=== PATIENT | male | born 1955 | race Hispanic/Latino ===

== ENCOUNTER 2019-06-13 19:38 | Emergency (ER) | payer MEDICARE ==
--- NOTE | 2019-06-13 22:08 | ER ---
Nurse's Notes [facility] Name: Jeremy Conklin Age: 64 yrs Sex: Male : 1955 Arrival Date: 06/13/2019 Time: 19:41 Bed 12 Private MD: Diagnosis: Bronchitis, not specified as acute or chronic;Asthma Presentation: 06/13 20:02 Presenting complaint: Patient states: cough congestion sore throat for 2-3 days. Pain dm5 when swallowing. Ibuprofen taken at 1630. Transition of care: patient was not received from another setting of care. Onset of symptoms was June 11, 2019. Risk Assessment: Do you want to hurt yourself or someone else? Patient reports no desire to harm self or others. Initial Sepsis Screen: Does the patient meet any 2 criteria? No. Patient's initial sepsis screen is negative. Does the patient have a suspected source of infection? No. Patient's initial sepsis screen is negative. Care prior to arrival: None. 20:02 Method Of Arrival: Ambulatory dm5 20:02 Acuity: DARLENE 4 dm5 Historical: - Allergies: 20:08 No Known Allergies; dm5 - Home Meds: 20:08 "toujeo" [Active]; Invokamet oral oral [Active]; Lisinopril Oral [Active]; dm5 levothyroxine oral [Active]; - PMHx: 20:08 Diabetes - NIDDM; Hypothyroidism; Hypertension; dm5 Screenin:33 Abuse screen: Denies threats or abuse. Denies injuries from another. Nutritional aa1 screening: No deficits noted. Tuberculosis screening: No symptoms or risk factors identified. Fall Risk None identified. Assessment: 21:10 Reassessment: Hand-off received from Georgia Sandoval RN. aa1 21:33 General: Appears in no apparent distress. comfortable, Behavior is calm, cooperative, aa1 appropriate for age. Pain: Denies pain. Neuro: Level of Consciousness is awake, alert, obeys commands, Oriented to person, place, time, situation. Respiratory: Reports cough that is Airway is patent Respiratory effort is even, unlabored, Respiratory pattern is regular, symmetrical, Breath sounds are clear bilaterally. GI: No signs and/or symptoms were reported involving the gastrointestinal system. : No signs and/or symptoms were reported regarding the genitourinary system. EENT: Throat is clear Reports pain when swallowing. Derm: Skin is intact, is healthy with good turgor, Skin is pink, warm \\T\\ dry. Musculoskeletal: Capillary refill < 3 seconds. 22:03 Reassessment: Patient appears in no apparent distress at this time. Patient and/or aa1 family updated on plan of care and expected duration. Pain level reassessed. Patient is alert, oriented x 3, equal unlabored respirations, skin warm/dry/pink. Awaiting provider reassessment. Vital Signs: 20:08 BP 109 / 58; Pulse 87; Resp 18; Temp 99(O); Pulse Ox 96% on R/A; Weight 80.74 kg; dm5 Height 5 ft. 6 in. (167.64 cm); 22:05 BP 113 / 61; Pulse 84; Resp 18; Temp 98.7; Pulse Ox 95% on R/A; Pain 0/10; aa1 20:08 Body Mass Index 28.73 (80.74 kg, 167.64 cm) dm5 ED Course: 19:41 Patient arrived in ED. cf2 19:45 Triage completed. mg2 19:47 Mariela Garrido FNP-C [facility]. snw 19:47 Colleen Blunt MD is Attending Physician. snw 20:08 Arm band placed on right wrist. Patient placed in an exam room. dm5 20:40 Flu and/or RSV swab sent to lab. Strep swab sent to lab. jp3 20:41 Strep Sent. jp3 20:41 Flu Sent. jp3 21:33 Patient has correct armband on for positive identification. Call light in reach. Pulse aa1 ox on. NIBP on. 21:33 No provider procedures requiring assistance completed. Patient did not have IV access aa1 during this emergency room visit. 21:59 Yady Barajas, ROLAND is Primary Nurse. aa1 Administered Medications: 22:03 Drug: Zithromax 500 mg Route: PO; aa1 22:22 Follow up: Response: No adverse reaction; Medication administered at discharge. aa1 22:03 Drug: Tussionex Pennkinetic ER 5 ml Route: PO; aa1 22:22 Follow up: Response: No adverse reaction; Medication administered at discharge. aa1 Outcome: 22:08 Discharge ordered by . snw 22:24 Discharged to home ambulatory, with significant other. aa1 22:24 Condition: good 22:24 Discharge instructions given to patient, significant other, Instructed on discharge instructions, follow up and referral plans. medication usage, Demonstrated understanding of instructions, follow-up care, medications, Prescriptions given X 2. 22:24 Patient left the ED. aa1 Signatures: Georgia Sandoval RN RN dm5 Yady Barajas RN RN aa1 Mariela Garrido, CARPENTER HELPER-C CARPENTER HELPER-Csnw Dalton Benton RN RN mg2 Luis Venegas jp3 Polly Melchor cf2 Corrections: (The following items were deleted from the chart) 19:44 Presenting complaint: Mother states: sore throat and congestion started Wednesday. mg2 Today she was in bed all day and complained that she was achy and that her legs hurt. mg2 :47 19:44 Transition of care: patient was not received from another setting of care. [place] [id number] 47 19:44 Onset of symptoms was June 12, 2019 [place] [id number] 47 19:44 Risk Assessment: Do you want to hurt yourself or someone else? Patient reports no mg2 desire to harm self or others. mg2 47 19:44 Initial Sepsis Screen: Does the patient meet any 2 criteria? HR > 90 bpm. Does mg2 the patient have a suspected source of infection? Yes: Other: possibly influenza mg2 19:44 Care prior to arrival: None. mg2 mg2 47 19:44 Method [facility] Arrival: [facility] [place] [place] mg2 47 19:44 Acuity: DARLENE 4 mg2 mg2 47 19:45 Allergies: No Known Allergies; mg2 mg2 47 19:45 Home Meds: None; mg2 mg2 19:45 PMHx: None; mg2 mg2 47 19:45 PSHx: Tonsillectomy; mg2 mg2 :47 19:45 BP 134 / 82; Pulse 105bpm; Resp 20bpm; Pulse Ox 99% RA; Temp 98.6F Oral; 95.25 mg2 kg; Height 5 ft. 3 in.; BMI: 37.2; Pain 7/10; mg2 19:47 19:45 Arm band placed on right wrist. Patient placed in an exam room, [place] [id number]
--- NOTE | 2019-06-13 22:08 | EDPHYS ---
Physician Documentation [facility] Name: Jeremy Conklin Age: 64 yrs Sex: Male : 1955 Arrival Date: 06/13/2019 Time: 19:41 Bed 12 Private MD: ED Physician Colleen Blunt HPI: 06/13 20:57 This 64 yrs old Male presents to ER via Ambulatory with complaints of Flu snw Symptoms, Sore Throat. 20:57 The patient or guardian reports cough, flu symptoms, arthralgias, low-grade fever, snw myalgias, no appetite. Onset: The symptoms/episode began/occurred suddenly, and became persistent. Associated signs and symptoms: Pertinent positives: fever, sore throat. Severity of symptoms: At their worst the symptoms were moderate in the emergency department the symptoms are unchanged. The patient has not experienced similar symptoms in the past. It is unknown whether or not the patient has recently seen a physician. Historical: - Allergies: 20:08 No Known Allergies; dm5 - Home Meds: 20:08 "toujeo" [Active]; Invokamet oral oral [Active]; Lisinopril Oral [Active]; dm5 levothyroxine oral [Active]; - PMHx: 20:08 Diabetes - NIDDM; Hypothyroidism; Hypertension; dm5 ROS: 20:56 Eyes: Negative for injury, pain, redness, and discharge. snw 20:56 Neck: Negative for injury, pain, and swelling, Cardiovascular: Negative for chest pain, palpitations, and edema. 20:56 Abdomen/GI: Negative for abdominal pain, nausea, vomiting, diarrhea, and constipation, Back: Negative for injury and pain, : Negative for injury, bleeding, discharge, and swelling, MS/Extremity: Negative for injury and deformity, Skin: Negative for injury, rash, and discoloration. 20:56 Constitutional: Positive for body aches, fatigue, fever, malaise. 20:56 ENT: Positive for sinus congestion, sore throat. 20:56 Respiratory: Positive for cough, hx of asthma. 20:56 Neuro: Positive for headache. Exam: 20:49 Head/Face: Normocephalic, atraumatic. Eyes: Pupils equal round and reactive to light, snw extra-ocular motions intact. Lids and lashes normal. Conjunctiva and sclera are non-icteric and not injected. Cornea within normal limits. Periorbital areas with no swelling, redness, or edema. 20:49 Constitutional: The patient appears alert, awake, febrile, congested 20:49 ENT: Ear canal(s): are normal, TM's: are normal, Nose: Nasal mucosa: edematous, erythematous, Mouth: is normal, Posterior pharynx: erythema, that is moderate, Voice: is normal. 20:55 Chest/axilla: Normal chest wall appearance and motion. Nontender with no deformity. snw No lesions are appreciated. Cardiovascular: Regular rate and rhythm with a normal S1 and S2. No gallops, murmurs, or rubs. Normal PMI, no JVD. No pulse deficits. Respiratory: Lungs have equal breath sounds bilaterally, clear to auscultation and percussion. No rales, rhonchi or wheezes noted. No increased work of breathing, no retractions or nasal flaring. Abdomen/GI: Soft, non-tender, with normal bowel sounds. No distension or tympany. No guarding or rebound. No evidence of tenderness throughout. Back: No spinal tenderness. No costovertebral tenderness. Full range of motion. Skin: Warm, dry with normal turgor. Normal color with no rashes, no lesions, and no evidence of cellulitis. MS/ Extremity: Pulses equal, no cyanosis. Neurovascular intact. Full, normal range of motion. Neuro: Awake and alert, GCS 15, oriented to person, place, time, and situation. Cranial nerves II-XII grossly intact. Motor strength 5/5 in all extremities. Sensory grossly intact. Cerebellar exam normal. Normal gait. Psych: Awake, alert, with orientation to person, place and time. Behavior, mood, and affect are within normal limits. 20:55 Neck: External neck: is normal, Thyroid: appears normal, Lymph nodes: lymphadenopathy is appreciated, anterior cervical nodes. Vital Signs: 20:08 BP 109 / 58; Pulse 87; Resp 18; Temp 99(O); Pulse Ox 96% on R/A; Weight 80.74 kg; dm5 Height 5 ft. 6 in. (167.64 cm); 22:05 BP 113 / 61; Pulse 84; Resp 18; Temp 98.7; Pulse Ox 95% on R/A; Pain 0/10; aa1 20:08 Body Mass Index 28.73 (80.74 kg, 167.64 cm) dm5 MDM: 20:19 Patient medically screened. snw 22:09 Data reviewed: vital signs, nurses notes. Data interpreted: Pulse oximetry: on room air snw is 95 %. Interpretation: acceptable. Counseling: I had a detailed discussion with the patient and/or guardian regarding: the historical points, exam findings, and any diagnostic results supporting the discharge/admit diagnosis, lab results, the need for outpatient follow up, to return to the emergency department if symptoms worsen or persist or if there are any questions or concerns that arise at home. Special discussion: Based on the history and exam findings, there is no indication for further emergent testing or inpatient evaluation. I discussed with the patient/guardian the need to see the primary care provider for further evaluation of the symptoms. 06/13 20:28 Order name: Flu; Complete Time: 21:19 snw 06/13 20:28 Order name: Strep; Complete Time: 21: snw 06/13 21:11 Order name: Throat Culture EDMS Administered Medications: 22:03 Drug: Zithromax 500 mg Route: PO; aa1 22:22 Follow up: Response: No adverse reaction; Medication administered at discharge. aa1 22:03 Drug: Tussionex Pennkinetic ER 5 ml Route: PO; aa1 22:22 Follow up: Response: No adverse reaction; Medication administered at discharge. aa1 Disposition: 06/13/19 22:08 Discharged to Home. Impression: Bronchitis, not specified as acute or chronic, Asthma. - Condition is Stable. - Discharge Instructions: Acute Bronchitis, Adult, Asthma, Adult, Fever, Adult, How to Use an Inhaler, Cool Mist Vaporizer, Cough, Adult, Rehydration, Elderly. - Prescriptions for Albuterol Sulfate 90 mcg/actuation - inhale 1-2 puff by INHALATION route every 4-6 hours; 1 Inhaler. Zithromax 500 mg Oral Tablet - take 1 tablet by ORAL route once daily for 5 days; 5 tablet. - Work release form, Medication Reconciliation Form, Thank You Letter, Antibiotic Education, Prescription Opioid Use form. - Follow up: Emergency Department; When: As needed; Reason: Worsening of condition. Follow up: Private Physician; When: 2 - 3 days; Reason: Recheck today's complaints, Continuance of care, Re-evaluation by your physician. Addendum: 07/03/2019 18:54 Co-signature as Attending Physician, Colleen Blunt MD. m a2 Signatures: Dispatcher [employer] EDMS Georgia Sandoval RN RN dm5 Yady Barajas RN RN aa1 Mariela Garrido, COUPON REDEMPTION CLERK-C COUPON REDEMPTION CLERK-Csnw Colleen Blunt MD MD ma2 Dalton Benton RN RN mg2 Corrections: (The following items were deleted from the chart) 06/13 19:47 19:45 Allergies: No Known Allergies; mg2 mg2 19:47 19:45 Home Meds: None; mg2 mg2 19:47 19:45 PMHx: None; mg2 mg2 19:47 19:45 PSHx: Tonsillectomy; mg2 mg2 20:56 20:49 ENT: External ear(s): snw snw 22:24 22:08 06/13/2019 22:08 Discharged to Home. Impression: Bronchitis, not specified as aa1 acute or chronic; Asthma. Condition is Stable. Forms are Medication Reconciliation Form, Thank You Letter, Antibiotic Education, Prescription Opioid Use. Follow up: Emergency Department; When: As needed; Reason: Worsening of condition. Follow up: Private Physician; When: 2 - 3 days; Reason: Recheck today's complaints, Continuance of care, Re-evaluation by your physician. snw
[2019-06-14 14:44] VITALS: BP 113/61; TEMP 98.7; O2SAT 95
== END 2019-06-13 22:24 | disposition home or self-care (01) ==
LOC: ER 19:38
DX: J40 Bronchitis, not specified as acute or chronic (principal); E03.9 Hypothyroidism, unspecified; I10 Essential (primary) hypertension; E11.9 Type 2 diabetes mellitus without complications
CPT/HCPCS: 87070; 87081; 87804; 99284

== ENCOUNTER 2020-07-30 16:00 | Inpatient (IN) | payer MEDICARE ==
[2020-07-30 16:41] LABS: Absolute Lymphocytes (CBC) 1.8 K/uL (0.7-4.9); Basophils % 0.7 % (0-1.3); Hematocrit 38.2 % (39.6-49.0); Lymphocytes % 27.6 % (15.3-44.8); MPV 8.7 fL (7.6-11.3); RBC Red Blood Cell Count 4.53 M/uL (4.33-5.43)
[2020-07-30] MEDS ORDERED: NA CHLORIDE 0.9% 500 ML ONE (16:45)
[2020-07-30 17:08] LABS: Albumin 3.4 g/dL (3.4-5.0); Bilirubin Total 0.4 mg/dL (0.2-1.0); Potassium 4.5 mmol/L (3.5-5.1); Protein, Total 7.7 g/dL (6.4-8.2)
--- NOTE | 2020-07-30 17:19 | ER ---
Nurse's Notes [facility] Name: Jeremy Conklin Age: 65 yrs Sex: Male : 1955 Arrival Date: 07/30/2020 Time: 16:03 Bed 5 Private MD: Radha Monsalve H Diagnosis: Osteomyelitis of the left 2nd toe Presentation: 07/30 16:09 Chief complaint: Patient states: L foot 1st digit pain, swelling for 10 days. Got MRI ll1 by Dr. Monsalve, was sent for bone infection. Coronavirus screen: Client denies travel out of the [place] in the last 14 days. At this time, the client does not indicate any symptoms associated with coronavirus-19. Ebola Screen: Patient denies travel to an Ebola-affected area in the 21 days before illness onset. Initial Sepsis Screen: Does the patient meet any 2 criteria? No. Patient's initial sepsis screen is negative. Does the patient have a suspected source of infection? Yes: Skin breakdown/wound. Risk Assessment: Do you want to hurt yourself or someone else? Patient reports no desire to harm self or others. Onset of symptoms was July 20, 2020. 16:09 Method Of Arrival: Wheelchair ll1 16:09 Acuity: DARLENE 2 ll1 Historical: - Allergies: 16:11 No Known Allergies; ll1 - Home Meds: 21:48 levothyroxine oral [Active]; rr5 - PMHx: 16:11 Diabetes - NIDDM; Hypertension; Hypothyroidism; ll1 - PSHx: 16:11 wrist sx; ll1 - Immunization history:: Flu vaccine status is unknown. Client reports receiving the 2nd dose of the Covid vaccine. - Social history:: Smoking status: Patient denies any tobacco usage or history of. Screenin:19 Abuse screen: Denies threats or abuse. Denies injuries from another. Nutritional ph screening: No deficits noted. Tuberculosis screening: No symptoms or risk factors identified. 21:48 Fall Risk IV access (20 points). rr5 Assessment: 16:35 General: Appears in no apparent distress. comfortable, well groomed, Behavior is calm, ph cooperative, appropriate for age, Denies fever. Pain: Denies pain. Neuro: Level of Consciousness is awake, alert, obeys commands, Oriented to person, place, time, situation. Cardiovascular: Capillary refill < 3 seconds in bilateral fingers Patient's skin is warm and dry. Respiratory: Airway is patent Respiratory effort is even, unlabored, Respiratory pattern is regular, symmetrical. GI: No signs and/or symptoms were reported involving the gastrointestinal system. Derm: Skin is healthy with good turgor, Skin is pink, warm \T\ dry. Wound noted tip of left great toe Wound is pea-sized, blackened in appearance, no drainage noted, skin to top of foot and second and third toes reddened, no open wounds noted. Musculoskeletal: Circulation, motion, and sensation intact. Range of motion: intact in all extremities. 17:35 Reassessment: Patient appears in no apparent distress at this time. Patient and/or ph family updated on plan of care and expected duration. Pain level reassessed. Patient is alert, oriented x 3, equal unlabored respirations, skin warm/dry/pink. 18:31 Reassessment: Patient appears in no apparent distress at this time. Patient and/or ph family updated on plan of care and expected duration. Pain level reassessed. Patient is alert, oriented x 3, equal unlabored respirations, skin warm/dry/pink. 19:30 Reassessment: Patient appears in no apparent distress at this time. Patient and/or mg2 family updated on plan of care and expected duration. Pain level reassessed. Patient is alert, oriented x 3, equal unlabored respirations, skin warm/dry/pink. Vital Signs: 16:09 BP 91 / 57; Pulse 74; Resp 17; Temp 98.9; Pulse Ox 96% ; Weight 77.11 kg; Height 5 ft. ll1 6 in. (167.64 cm); Pain 0/10; 16:47 BP 105 / 65; Pulse 73; Resp 18; Pulse Ox 95% on R/A; ph 17:45 BP 119 / 61; Pulse 72; Resp 18; Pulse Ox 96% on R/A; ph 18:33 BP 127 / 73; Pulse 72; Resp 18; Pulse Ox 95% on R/A; ph 19:32 BP 134 / 67; Pulse 72; Resp 18; Pulse Ox 97% on R/A; mg2 16:09 Body Mass Index 27.44 (77.11 kg, 167.64 cm) ll1 ED Course: 16:03 Patient arrived in ED. mr 16:03 Radha Monsalve DO is Private Physician. mr 16:05 Armando Johnson PA is PHCP. [facility] 16:05 Cheikh Koo MD is Attending Physician. [facility] 16:10 Triage completed. ll1 16:12 Arm band placed on Patient placed in an exam room, on a stretcher. ll1 16:19 Patient has correct armband on for positive identification. Bed in low position. Call ph light in reach. Side rails up X 1. Pulse ox on. NIBP on. Door closed. Noise minimized. 16:23 Lupe Blackwell, RN is Primary Nurse. ph 16:30 Initial lab(s) drawn, by me, sent to lab. kj1 16:30 Inserted saline lock: in right antecubital area, using aseptic technique. Blood kj1 collected. 17:17 Boaz Hu is Hospitalizing Provider. m 21:48 No provider procedures requiring assistance completed. Patient admitted, IV remains in rr5 place. Administered Medications: 16:34 Drug: NS 0.9% 500 ml Route: IV; Rate: bolus; Site: right antecubital; ph 18:00 Follow up: Response: No adverse reaction; IV Status: Completed infusion; IV Intake: ph 500ml 20:03 Drug: vancoMYCIN 1 grams Route: IVPB; Infused Over: 2 hrs; Site: right antecubital; mg2 03 00:49 Follow up: Response: No adverse reaction; IV Status: Completed infusion; IV Intake: mg2 250ml Intake: 07/30 18:00 IV: 500ml; Total: 500ml. ph 07/31 00:49 IV: 250ml; Total: 750ml. mg2 Outcome: 07/30 17:18 Decision to Hospitalize by Provider. jmm 21:25 Admitted to ER Hold. Please see [facility] for further documentation. rr5 21:25 Condition: stable 21:25 Instructed on the need for admit, Demonstrated understanding of instructions. 03 10:43 Patient left the ED. bp Signatures: Armando Johnson PA PA [facility] Susanne Palma mr Lupe Blackwell, ROLAND RN ph Jean Jeong RN RN bp Dalton Benton RN RN mg2 Blair Singh RN RN rr5 Elisha Frazier kj1 Jin, Lynsay, RN RN ll1 Corrections: (The following items were deleted from the chart) 07/30 16:12 16:09 Acuity: DARLENE 3 ll1 ll1
--- NOTE | 2020-07-30 17:19 | EDPHYS ---
Physician Documentation [facility] Name: Jeremy Conklin Age: 65 yrs Sex: Male : 1955 Arrival Date: 07/30/2020 Time: 16:03 Bed 5 Private MD: Radha Monsalve H ED Physician Cheikh Koo HPI: 07/30 16:23 This 65 yrs old Male presents to ER via Wheelchair with complaints of Infected jmm Toe. 16:23 Onset: The symptoms/episode began/occurred gradually, 10 day(s) ago. Modifying factors: jmm The symptoms are alleviated by nothing, the symptoms are aggravated by nothing. Associated signs and symptoms: Pertinent negatives: fever. This is a 65 year old male with a history of DM,. HTN, hypothyroidism that presents to the ED with complaints of bone infection in the left foot. Seen at [facility] for cellulitis of the left for 10 days ago. Prescribed clindamycin which has helped with redness and swelling. MRI today revealed osteomyelitis. Advised by Dr. Monsalve to go to ED for admission. . Historical: - Allergies: 16:11 No Known Allergies; ll1 - Home Meds: 21:48 levothyroxine oral [Active]; rr5 - PMHx: 16:11 Diabetes - NIDDM; Hypertension; Hypothyroidism; ll1 - PSHx: 16:11 wrist sx; ll1 - Immunization history:: Flu vaccine status is unknown. Client reports receiving the 2nd dose of the Covid vaccine. - Social history:: Smoking status: Patient denies any tobacco usage or history of. ROS: 16:23 Constitutional: Negative for fever, chills, and weight loss, Cardiovascular: Negative jmm for chest pain, palpitations, and edema, Respiratory: Negative for shortness of breath, cough, wheezing, and pleuritic chest pain. 16:23 MS/extremity: Positive for erythema. 16:23 All other systems are negative. Exam: 16:23 Constitutional: This is a well developed, well nourished patient who is awake, alert, jmm and in no acute distress. Head/Face: atraumatic. Eyes: EOMI, no conjunctival erythema appreciated ENT: Moist Mucus Membranes Neck: Trachea midline, Supple Chest/axilla: Normal chest wall appearance and motion. Cardiovascular: Regular rate and rhythm. No edema appreciated Respiratory: Normal respirations, no respiratory distress appreciated Abdomen/GI: Non distended, soft Back: Normal ROM 16:23 Skin: mild erythema noted to the left great toe with eschar appreciated. . 16:23 Neuro: Orientation: is normal, Mentation: is normal, Memory: is normal. 16:23 Psych: Behavior/mood is pleasant, cooperative. Vital Signs: 16:09 BP 91 / 57; Pulse 74; Resp 17; Temp 98.9; Pulse Ox 96% ; Weight 77.11 kg; Height 5 ft. ll1 6 in. (167.64 cm); Pain 0/10; 16:47 BP 105 / 65; Pulse 73; Resp 18; Pulse Ox 95% on R/A; ph 17:45 BP 119 / 61; Pulse 72; Resp 18; Pulse Ox 96% on R/A; ph 18:33 BP 127 / 73; Pulse 72; Resp 18; Pulse Ox 95% on R/A; ph 19:32 BP 134 / 67; Pulse 72; Resp 18; Pulse Ox 97% on R/A; mg2 16:09 Body Mass Index 27.44 (77.11 kg, 167.64 cm) ll1 MDM: 16:16 Patient medically screened. [facility] 17:17 Data reviewed: vital signs, nurses notes. Counseling: I had a detailed discussion with manjit the patient and/or guardian regarding: the historical points, exam findings, and any diagnostic results supporting the discharge/admit diagnosis, lab results, the need for further work-up and treatment in the hospital. ED course: I discussed the patient with Dr. Hu whom accepted the patient for admission. . 07/30 16:17 Order name: CBC with Diff [facility] 07/30 16:17 Order name: CMP [facility] 07/30 16:17 Order name: Procalcitonin; Complete Time: 17:43 [facility] 07/30 16:17 Order name: Lactate; Complete Time: 17:12 [facility] 07/30 16:17 Order name: Blood Culture Adult (2) [facility] 07/30 16:17 Order name: CBC with Automated Diff; Complete Time: 16:48 [facility] 07/30 16:17 Order name: Comprehensive Metabolic Panel; Complete Time: 17:12 [facility] 07/30 18:36 Order name: COVID-19 : Document "Date of Symptom Onset" if Symptomatic. ph 07/30 19:19 Order name: CORONAVIRUS EDMS 07/30 19:58 Order name: SARS-COV-2 RT PCR; Complete Time: 19:59 EDMS 07/31 01:35 Order name: Glucose, Ancillary Testing EDMS 07/31 05:41 Order name: Basic Metabolic Panel EDMS 07/31 05:41 Order name: Phosphorus EDMS 07/31 05:41 Order name: Magnesium EDMS 07/30 16:17 Order name: Saline Lock; Complete Time: 16:35 [facility] 07/31 06:45 Order name: CBC with Automated Diff EDMS 07/31 06:54 Order name: Protime (+INR) EDMS 07/31 07:49 Order name: Glucose, Ancillary Testing EDMS Administered Medications: 16:34 Drug: NS 0.9% 500 ml Route: IV; Rate: bolus; Site: right antecubital; ph 18:00 Follow up: Response: No adverse reaction; IV Status: Completed infusion; IV Intake: ph 500ml 20:03 Drug: vancoMYCIN 1 grams Route: IVPB; Infused Over: 2 hrs; Site: right antecubital; mg2 07/31 00:49 Follow up: Response: No adverse reaction; IV Status: Completed infusion; IV Intake: mg2 250ml Disposition: 13:59 Co-signature as Attending Physician, Cheikh Koo MD. rn Disposition: 07/30/20 17:18 Hospitalization ordered by Boaz Hu for Observation. Preliminary diagnosis is Osteomyelitis of the left 2nd toe. - Bed requested for Telemetry/MedSurg (observation). - Status is Observation. bp - Condition is Stable. - Problem is new. - Symptoms are unchanged. Signatures: Dispatcher [employer] [facility] Kate Kasper Joel, PA PA jmm Nieto, Roman, MD MD rn Hall, Patricia, RN RN ph Wendi Nolen, ROLAND RN cg Jean Jeong RN RN bp Dalton Benton RN RN mg2 Blair Signh RN RN rr5 Jah Abdi RN RN ll1 Corrections: (The following items were deleted from the chart) 07/30 21:24 17:18 Hospitalization Ordered by Boaz Hu for Observation. Preliminary diagnosis cg is Osteomyelitis of the left 2nd toe. Bed requested for Telemetry/MedSurg (observation). Status is Observation. Condition is Stable. Problem is new. Symptoms are unchanged. jmm 07/31 09:13 07/30 21:24 07/30/2020 17:18 Hospitalization Ordered by Boaz Hu for Observation. bd Preliminary diagnosis is Osteomyelitis of the left 2nd toe. Bed requested for [facility]. Status is Observation. Condition is Stable. Problem is new. Symptoms are unchanged. cg 07/31 10:43 09:13 07/30/2020 17:18 Hospitalization Ordered by Boaz Hu for Observation. bp Preliminary diagnosis is Osteomyelitis of the left 2nd toe. Bed requested for Telemetry/MedSurg (observation). Status is Observation. Condition is Stable. Problem is new. Symptoms are unchanged. bd
--- NOTE | 2020-07-30 18:06 | P.HP ---
Certification for Inpatient Patient admitted to: Inpatient With expected LOS: >2 Midnights Practitioner: I am a practitioner with admitting privileges, knowledge of patient current condition, hospital course, and medical plan of care. Services: Services provided to patient in accordance with Admission requirements found in Title 42 Section 412.3 of the Code of Federal Regulations Patient History Date of Service: 07/30/20 Reason for admission: Infected left great toe wound. History of Present Illness: 65-year-old man with a history of diabetes mellitus type 2 on insulin was r eferred to the emergency department by his PCP due to infected left great toe wound. Patient report cutting the tip of his left great while cutting his toe nail of 2 weeks ago. The wound did not heal, patient reports his left great toe got swollen and painful. He went to ED and was given a shot of clindamycin and discharged with oral clindamycin which improved the swelling a bit. He saw his PCP will order the MRI and noted patient has osteomyelitis. His PCP referred him to the ED to be admitted for IV antibiotics. Blood work done in the ED is unremarkable. Patient is hospitalized for further management. Allergies NKDA Allergy (Uncoded 05/19/15 21:54) Unknown - Past Medical/Surgical History -: Diabetes mellitus type 2 -: Hypertension - Family History Brother -: Diabetes Sister -: Diabetes - Social History Smoking Status: Never smoker Alcohol use: Yes CD- Drugs: No Place of Residence: Home Review of Systems Other: Except as documented, all other systems reviewed and negative. Physical Examination - Physical Exam General: Alert, In no apparent distress, Oriented x3 HEENT: Atraumatic, Normocephalic, Mucous membr. moist/pink, EOMI, Sclerae nonicteric Neck: Supple, JVD not distended Respiratory: Clear to auscultation bilaterally, Normal air movement Cardiovascular: No edema, Regular rate/rhythm, Normal S1 S2 Capillary refill: <2 Seconds Gastrointestinal: Normal bowel sounds, Soft and benign, Non-distended, No tenderness Musculoskeletal: Erythema (Mild erythema tip of left great toe) Integumentary: Other (Eschar on the tip of left great toe, [place] aspect of the left great toe is tender to palpation.) Neurological: Normal speech, Normal strength at 5/5 x4 extr, Cranial nerves 3-12 intact - Studies Laboratory Data (last 24 hrs) 07/30/20 16:30: Sodium 139, Potassium 4.5, BUN 32 H, Creatinine 1.44 H, Glucose 226 H, Total Bilirubin 0.4, AST 24, ALT 35, Alkaline Phosphatase 145 H 07/30/20 16:30: WBC 6.60, Hgb 12.6 L, Hct 38.2 L, Plt Count 179 Assessment and Plan - Problems (Diagnosis) (1) Wound of left foot Current Visit: Yes Status: Acute (2) Osteomyelitis of great toe Current Visit: Yes Status: Acute (3) Diabetes mellitus type 2 in nonobese Current Visit: Yes Status: Acute (4) Hypertension Current Visit: Yes Status: Acute - Plan Admit to the medical floor. Blood cultures obtained in the ED. Start IV cefepime and vancomycin. Consult general surgeon-Dr. Powell requested. Local wound care. Insulin sliding scale and Lantus insulin for glucose management. Continue home antihypertensives. - Advance Directives Does patient have a Living Will: No Does patient have a Durable POA for Healthcare: No
[2020-07-30] MEDS ORDERED: VANCOMYCIN 1 GM/VIAL ONE (20:19)
[2020-07-30] MEDS ORDERED: NA CHLORIDE 0.9% 250 ML ONE (20:19)
[2020-07-31] MEDS ORDERED: VANCOMYCIN/NS 1 gm 1 GM/250 ML BAG IVPB SCH (00:45)
[2020-07-31] MEDS ORDERED: ACETAMINOPHEN 500 MG TAB PO PRN (00:45)
[2020-07-31] MEDS ORDERED: ONDANSETRON 4 MG/2 ML VIAL IV PRN (00:45)
[2020-07-31] MEDS ORDERED: CEFEPIME 1 GM/VIAL IV SCH (00:45)
[2020-07-31] MEDS ORDERED: VANCOMYCIN 500 MG in NA CHLORIDE 0.9% 100 ML IVPB ONE (01:00)
[2020-07-31] MEDS: HEPARIN 5000 UNIT/ML 1 ML VIAL SQ SCH ×3 (01:04→17:00)
[2020-07-31] MEDS: NA CHLORIDE 0.9% 1,000 ML IV SCH ×2 (01:05→18:22)
[2020-07-31] MEDS: CEFEPIME/SWI 1gm 10 ML IV SCH ×2 (01:05→13:00)
[2020-07-31] MEDS ORDERED: HEPARIN 5000 UNIT/ML 1 ML VIAL ONE (01:12)
[2020-07-31] MEDS ORDERED: CEFEPIME/SWI 1gm 10 ML ONE (01:13)
[2020-07-31] MEDS ORDERED: NA CHLORIDE 0.9% 1,000 ML ONE (01:13)
[2020-07-31] MEDS: INSULIN -REGULAR HUMAN 50 UNIT/0.5 ML ML SQ SCH ×5 (01:27→21:00)
[2020-07-31] MEDS ORDERED: NA CHLORIDE 0.9% 100 ML ONE (01:31)
[2020-07-31] MEDS ORDERED: NA CHLORIDE 0.9% 250 ML ONE (01:31)
[2020-07-31] MEDS ORDERED: VANCOMYCIN 1 GM/VIAL ONE (01:31)
[2020-07-31] MEDS ORDERED: INSULIN -REGULAR HUMAN 50 UNIT/0.5 ML ML ONE (01:54)
[2020-07-31 02:34] VITALS: BMI 27.4
[2020-07-31 05:41] LABS: Magnesium 2.6 mg/dL (1.8-2.4); Phosphorus 4.3 mg/dL (2.5-4.9); Potassium 4.1 mmol/L (3.5-5.1)
[2020-07-31 06:35] LABS: Basophils % 0.7 % (0-1.3); Hematocrit 35.4 % (39.6-49.0); Lymphocytes % 37.1 % (15.3-44.8); RBC Red Blood Cell Count 4.25 M/uL (4.33-5.43)
[2020-07-31 06:46] LABS: Protime INR 0.97
[2020-07-31] MEDS ORDERED: D50W 25 GM/50 ML SYRINGE IV PRN (08:07)
[2020-07-31] MEDS ORDERED: GLUCAGON 1 MG/VIAL IM PRN (08:07)
[2020-07-31] MEDS ORDERED: INFLUENZA VACCINE (for 3y+) 0.5 ML DOSE IMVAC ONE ×2 (09:00→10:10)
[2020-07-31] MEDS ORDERED: PNEUMOCOCCAL VACCINE 0.5 ML IMVAC ONE ×2 (09:00→10:10)
--- NOTE | 2020-07-31 10:25 | CON ---
Date of Consultation: 07/31/2020 Diagnosis: Left foot necrotic diabetic ulcer. History Of Present Illness: This is a case of a 65-year-old patient with history of diabetes, come t o the ER with the distal toe necrotic findings with infected diabetic toe. He states he was cutting his nail 2 weeks ago. Also, he put heavy blankets on his feet due to cold weather and developed this black tissue over the tip and distal part of the toe with erythema. The patient was seen in the ER, admitted for IV antibiotics and osteomyelitis workup and surgical consult was obtained for debrideme nt. Allergies: NONE. Past Medical History: Diabetes and hypertension. Family History: Diabetes. Social History: He does not smoke. He drinks alcohol occasionally. Review of Systems: As above. Ten points otherwise unremarkable. Laboratory Data: Blood work shows WBC count of 5.3, hemoglobin of 11.7. Sodium is 143, chloride is 112. Assessment: This is a 65-year-old patient with a necrotic distal foot. The patient was offer debrid ement. He does not want amputation at this moment, so debridement we will do. He understands the be nefits, alternatives, and risks which include, but not limited to infection, bleeding, damage to rogelio cent structures, anesthesia complication, recurrence, GA and even . He also understands this ma y not relieve the symptoms. He might need more than one surgical intervention. He understood and si gned a consent. He understands the importance of diabetes control, offloading the area and wound car e as an outpatient and when he gets discharged we like [facility] until this is resolved. He understood, the patient was booked in OR. He is n.p.o. ANSON/KELSEY Voice ID: [id number] Report ID: [id number]
[2020-07-31] MEDS ORDERED: propofoL 200 MG/20 ML VIAL IV ONE (10:58)
[2020-07-31] MEDS ORDERED: LIDOCAINE 1% MPF 5 ML VIAL ONE (10:58)
[2020-07-31] MEDS ORDERED: FENTANYL CITR 100 MCG/2 ML ONE (10:58)
[2020-07-31] MEDS ORDERED: MIDAZOLAM HCL 2 MG/2 ML INJ ONE (10:58)
[2020-07-31] MEDS ORDERED: BUPIVACAINE 0.5% PF 10 ML VIAL ONE (11:04)
--- NOTE | 2020-07-31 11:10 | P.BOP ---
Preoperative diagnosis: necrotic infected diabetic ulcer left toe Postoperative diagnosis: same Primary procedure: Excisional debridement necrotic infected diabetic ulcer left toe 3x2 cm Estimated blood loss: <10cc Specimen: necrotic tissue, culture Findings: necrotic tissue very close to bone. Cant r/o osteo Anesthesia: MAC Transferred to: Recovery Room Condition: Good
--- NOTE | 2020-07-31 11:37 | P.PN ---
Subjective Date of Service: 07/31/20 Chief Complaint: Infected left great toe wound. Patient has no complain. He was kept NPO last night. Patient underwent excision and debridement of left great toe wound today. Physical Examination - Vital Signs Temperature: 97.3 F Blood Pressure: 101/55 Pulse: 59 Respirations: 16 Pulse Ox (%): 95 - Physical Exam General: Alert, In no apparent distress HEENT: Mucous membr. moist/pink Neck: Supple Respiratory: Clear to auscultation bilaterally, Normal air movement Cardiovascular: No edema, Regular rate/rhythm, Normal S1 S2 Gastrointestinal: Normal bowel sounds, Soft and benign, Non-distended, No tenderness Musculoskeletal: No swelling Neurological: Normal speech, Normal strength at 5/5 x4 extr - Studies Laboratory Data (last 24 hrs) 07/30/20 16:30: Sodium 139, Potassium 4.5, BUN 32 H, Creatinine 1.44 H, Glucose 226 H, Total Bilirubin 0.4, AST 24, ALT 35, Alkaline Phosphatase 145 H 07/30/20 16:30: WBC 6.60, Hgb 12.6 L, Hct 38.2 L, Plt Count 179 Assessment And Plan - Current Problems (Diagnosis) (1) Wound of left foot Current Visit: Yes Status: Acute (2) Osteomyelitis of great toe Current Visit: Yes Status: Acute (3) Diabetes mellitus type 2 in nonobese Current Visit: Yes Status: Acute (4) Hypertension Current Visit: Yes Status: Acute - Plan Continue IV cefepime and vancomycin. Status post excision and debridement. Follow blood cultures. Follow deep tissue wound culture. Pain management as needed. Continue Insulin sliding scale and resume Lantus insulin for glucose management. Continue home antihypertensives.
--- NOTE | 2020-07-31 11:46 | OP ---
Date of Procedure: 07/31/2020 Surgeon: Rodrigo Powell MD Preoperative Diagnosis: Necrotic infected diabetic ulcer, left toe. Postoperative Diagnosis: Necrotic infected diabetic ulcer, left toe. Procedure: Excisional debridement down to subcu of necrotic infected diabetic ulcer, left toe, 3 x 2 cm. Findings: Necrotic tissue very close to the bone, cannot rule out osteomyelitis. Specimen: Necrotic tissue culture. Indications: This is the case of a male, who comes to us with a black distal left toe. The benefits , alternatives, and risks of debridement fully explained, which include, but not limited to infection , bleeding, damage to adjacent structures, anesthesia complication, [place], and even . He also unde rstands this may not relieve any symptoms. He might need more than one surgical intervention. He un derstands the importance of diabetes control, offloading, be compliant with dressing changes. He und erstands the importance of following up with his primary doctor to do a complete vascular workup. He signed a consent. The area of concern was marked by me and the patient in the holding room. Procedure In Detail: The patient was brought to the operating room, placed in supine position. Anes thesia was done without complication. Left first toe was prepped and draped in sterile fashion with the foot. Local anesthesia was applied followed by sharp incision of the necrotic tissue with an 11 blade. All the necrotic tissue was removed and some of the subcutaneous tissue was also removed very close to the bone, cannot rule out osteomyelitis. The area was irrigated. Hemostasis was obtained. The area was covered with wet-to-dry dressing. The patient tolerated the procedure well. The patient was sent to recovery in stable [facility] ition. ANSON/MODL Voice ID: [id number] Report ID: [id number]
[2020-07-31] MEDS ORDERED: D50W 25 GM/50 ML VIAL IV PRN (16:00)
[2020-07-31] MEDS: INSULIN GLARGINE 100 UNITS/ML SQ SCH (22:24)
[2020-08-01] MEDS: VANCOMYCIN 1.5 GM in NA CHLORIDE 0.9% 500 ML IVPB SCH (01:01)
[2020-08-01] MEDS: HEPARIN 5000 UNIT/ML 1 ML VIAL SQ SCH ×3 (01:01→17:00)
[2020-08-01] MEDS: CEFEPIME/SWI 1gm 10 ML IV SCH ×2 (01:01→13:28)
[2020-08-01] MEDS ORDERED: CEFEPIME/SWI 1gm 10 ML ONE (01:10)
[2020-08-01] MEDS: NA CHLORIDE 0.9% 1,000 ML IV SCH ×2 (03:25→09:54)
[2020-08-01] MEDS: INSULIN -REGULAR HUMAN 50 UNIT/0.5 ML ML SQ SCH ×4 (07:30→21:00)
--- NOTE | 2020-08-01 11:27 | P.PN ---
Subjective Date of Service: 08/01/20 Chief Complaint: Infected left great toe wound. Patient has no complain. S/p excision and debridement of left great toe wound. Diet resumed. Blood glucose within acceptable range. Physical Examination - Vital Signs Temperature: 97.8 F Blood Pressure: 115/65 Pulse: 69 Respirations: 18 Pulse Ox (%): 98 - Physical Exam General: Alert, In no apparent distress Neck: JVD not distended Respiratory: Clear to auscultation bilaterally, Normal air movement Cardiovascular: No edema, Regular rate/rhythm, Normal S1 S2 Gastrointestinal: Normal bowel sounds, Soft and benign, Non-distended Musculoskeletal: No swelling Integumentary: Other (Dressed surgical wound of left great toe.) Neurological: Normal strength at 5/5 x4 extr, Cranial nerves 3-12 intact Assessment And Plan - Current Problems (Diagnosis) (1) Wound of left foot Current Visit: Yes Status: Acute (2) Osteomyelitis of great toe Current Visit: Yes Status: Acute (3) Diabetes mellitus type 2 in nonobese Current Visit: Yes Status: Acute (4) Hypertension Current Visit: Yes Status: Acute - Plan Continue IV cefepime and vancomycin. Status post excision and debridement. Follow blood cultures. Follow deep tissue wound culture. Pain management as needed. PICC line for outpatient IV antibiotics. Continue Insulin sliding scale and Lantus insulin for glucose management. Continue home antihypertensives.
[2020-08-01] MEDS: INSULIN GLARGINE 100 UNITS/ML SQ SCH (21:00)
[2020-08-02] MEDS: CEFEPIME/SWI 1gm 10 ML IV SCH (01:19)
[2020-08-02] MEDS: VANCOMYCIN 1.5 GM in NA CHLORIDE 0.9% 500 ML IVPB SCH (01:19)
[2020-08-02] MEDS: HEPARIN 5000 UNIT/ML 1 ML VIAL SQ SCH ×3 (01:19→17:00)
[2020-08-02] MEDS: NA CHLORIDE 0.9% 1,000 ML IV SCH ×3 (01:25→19:25)
[2020-08-02 06:26] LABS: Absolute Lymphocytes (CBC) 1.9 K/uL (0.7-4.9); Basophils % 0.4 % (0-1.3); Lymphocytes % 35.8 % (15.3-44.8); MPV 9.1 fL (7.6-11.3); RBC Red Blood Cell Count 4.25 M/uL (4.33-5.43)
[2020-08-02 06:57] LABS: BUN Blood Urea Nitrogen 18 mg/dL (7-18); Bicarbonate 25 mmol/L (21-32); Glucose Level 83 mg/dL (74-106); Sodium Level 141 mmol/L (136-145)
[2020-08-02] MEDS: INSULIN -REGULAR HUMAN 50 UNIT/0.5 ML ML SQ SCH ×4 (07:30→21:00)
[2020-08-02] MEDS: Levofloxacin 750mg IV 750 MG/150 ML BAG IV SCH (09:26)
[2020-08-02] MEDS: PREGABALIN 75 MG CAP PO SCH (09:32)
--- NOTE | 2020-08-02 14:57 | P.PN ---
Subjective Date of Service: 08/02/20 Chief Complaint: Infected left great toe wound. Patient has no complain. S/p excision and debridement of left great toe wound. Physical Examination - Vital Signs Temperature: 97.5 F Blood Pressure: 174/74 Pulse: 63 Respirations: 16 Pulse Ox (%): 99 - Physical Exam General: Alert, In no apparent distress, Oriented x3 Neck: JVD not distended Respiratory: Clear to auscultation bilaterally, Normal air movement Cardiovascular: No edema, Regular rate/rhythm, Normal S1 S2 Gastrointestinal: Normal bowel sounds, Soft and benign, Non-distended Musculoskeletal: No swelling Integumentary: No rashes Neurological: Normal strength at 5/5 x4 extr Assessment And Plan - Current Problems (Diagnosis) (1) Wound of left foot Current Visit: Yes Status: Acute (2) Osteomyelitis of great toe Current Visit: Yes Status: Acute (3) Diabetes mellitus type 2 in nonobese Current Visit: Yes Status: Acute (4) Hypertension Current Visit: Yes Status: Acute - Plan Deep tissue wound culture growing Pseudomonas sensitive to fluoroquinolones. Change antibiotics to IV Levaquin. Awaiting for PICC line placement for outpatient IV antibiotics at home with home health. Status post excision and debridement. Pain management as needed. Continue Insulin sliding scale and Lantus insulin for glucose management. Continue home antihypertensives. General surgery to follow for wound dressing recommendation.
--- NOTE | 2020-08-02 15:33 | P.CNS ---
Date of Consult: 08/02/20 Chief Complaint: Infected left great toe wound. History of Present Illness: The patient is a 65 year old male with a PMH of DM type 2 and HTN who presented to the ED with an infected left great toe wound. Patient states that he was clipping his toenails and accidentally cut off a small piece of skin and 2 weeks later the area was swollen, black, and infected. MRI was ordered by patients PCP and showed osteomyelitis. Patient underwent surgical debridement performed by Dr. Powell on 07/31-excisional debridement down to subq tissue. All of necrotic tissue was removed. Wound culture ordered-grew Pseudomonas sensitive to Levaquin. Will continue Levaquin for next 6 weeks, will switch to PO option for DC. Patient denies N/V/D, SOB, and chest pain. States pain in left great toe is still present but is getting better. Allergies No Known Allergies Allergy (Verified 07/31/20 01:29) Home Medications: Canagliflozin/Metformin HCl [Invokamet 150-1,000 mg Tablet] 1 tab PO BID 07/31/20 Insulin Glargine,Hum.rec.anlog [Toujeo Solostar] 30 unit SQ DAILY 07/31/20 Levothyroxine Sodium [Levothyroxine] 150 mcg PO DAILY 07/31/20 Lisinopril [Zestril] 1 tab PO DAILY 07/31/20 Pregabalin 1 cap PO BID 07/31/20 - Past Medical/Surgical History Diabetic: Yes -: IDDM -: KIDNEY DISEASE -: HYPOTHYROIDISM -: BROKEN LEFT ARM SURGERY-1995 - Family History Brother Medical History: Diabetes Notes: 2 brothers Sister Medical History: Diabetes Notes: 3 sisters Father Medical History: Diabetes - Social History Alcohol use: Yes CD- Drugs: No Caffeine use: Yes Place of Residence: Home Review of Systems 10-point ROS is otherwise unremarkable Physical Examination Temp Pulse Resp BP Pulse Ox 97.5 F 63 16 174/74 H 99 08/02/20 14:57 08/02/20 14:57 08/02/20 14:57 08/02/20 14:57 08/02/20 14:57 General: Alert, In no apparent distress, Oriented x3 HEENT: Atraumatic, Normocephalic Neck: Supple, 2+ carotid pulse no bruit, No Thyromegaly Respiratory: Clear to auscultation bilaterally, Normal air movement Cardiovascular: No edema Capillary refill: <2 Seconds Gastrointestinal: Normal bowel sounds, Soft and benign Musculoskeletal: No clubbing Integumentary: Other (left great toe wound s/p surgical debridment- wound is 3x2 cm. Periwound tissue shows redness and minimal sweeling. No lymphatic streaking noted. ) Microbiology 07/30/20 16:30 Blood - Blood Aerobic Blood Culture - Preliminary No growth in 24 hours. 07/30/20 16:30 Blood - Blood Anaerobic Blood Culture - Preliminary No growth in 24 hours. Conclusions/Impression: Antibiotics: Levaqin start: 08/02 stop: 09/13 Indication: osteomyelitis Assessment -Left great toe wound s/p surgical debridement with osteomyelitis -Dm type 2 -HTN -anemia Plan: -continue levaqin for 6 weeks. Monitor renal function closely. -to great toe wound: apply Iodosorb qMWF and wrap with kerlix -medical management per primary team -continue to monitor CBC nad BMP -continue to monitor for signs of infection Plan of care discussed with Dr. Livingston Thank you for consultation
[2020-08-02] MEDS: INSULIN GLARGINE 100 UNITS/ML SQ SCH (21:00)
[2020-08-03] MEDS: HEPARIN 5000 UNIT/ML 1 ML VIAL SQ SCH ×3 (01:11→16:24)
[2020-08-03] MEDS: LEVOTHYROXINE SOD 0.075 MG TAB PO SCH (05:48)
[2020-08-03] MEDS: INSULIN -REGULAR HUMAN 50 UNIT/0.5 ML ML SQ SCH ×4 (07:30→20:49)
[2020-08-03] MEDS: NA CHLORIDE 0.9% 1,000 ML IV SCH (08:47)
[2020-08-03] MEDS: PREGABALIN 75 MG CAP PO SCH ×2 (08:48→20:59)
[2020-08-03] MEDS: Levofloxacin 750mg IV 750 MG/150 ML BAG IV SCH (08:49)
[2020-08-03] MEDS: VANCOMYCIN 1.25 GM in NA CHLORIDE 0.9% 250 ML IVPB SCH ×2 (10:25→23:18)
--- NOTE | 2020-08-03 11:52 | P.PN ---
Subjective Date of Service: 08/03/20 Chief Complaint: Infected left great toe wound. Patient has no complain. S/p excision and debridement of left great toe wound. Deep tissue wound culture growing both MRSA and Pseudomonas. Physical Examination - Vital Signs Temperature: 97.0 F Blood Pressure: 148/65 Pulse: 62 Respirations: 16 Pulse Ox (%): 98 - Physical Exam General: Alert, In no apparent distress, Oriented x3 Neck: JVD not distended Respiratory: Clear to auscultation bilaterally, Normal air movement Cardiovascular: No edema, Regular rate/rhythm, Normal S1 S2 Gastrointestinal: Normal bowel sounds, Soft and benign, Non-distended, No tenderness Musculoskeletal: No swelling Integumentary: No rashes Neurological: Normal strength at 5/5 x4 extr Assessment And Plan - Current Problems (Diagnosis) (1) Wound of left foot Current Visit: Yes Status: Acute (2) Osteomyelitis of great toe Current Visit: Yes Status: Acute (3) Diabetes mellitus type 2 in nonobese Current Visit: Yes Status: Acute (4) Hypertension Current Visit: Yes Status: Acute - Plan Deep tissue wound culture growing Pseudomonas and MRSA. Contain IV Levaquin. Added IV vancomycin. Awaiting for PICC line placement for outpatient IV antibiotics at home with home health. Status post excision and debridement. Pain management as needed. Continue Insulin sliding scale and Lantus insulin for glucose management. Continue home antihypertensives. General surgery to follow for wound dressing recommendation.
--- NOTE | 2020-08-03 19:14 | RAD REPORT ---
EXAM DESCRIPTION: RAD - Chest Single View - 08/03/2020 6:56 pm CLINICAL HISTORY: picc line placement COMPARISON: Chest Pa And Lat (2 Views) dated 10/20/2017; Chest Pa And Lat (2 Views) dated 09/10/2016 FINDINGS: Portable chest was obtained following placement of a right upper extremity PICC line. The catheter tip projects over the azygos vein. A few cm of retraction would be deemed appropriate.
[2020-08-03] MEDS: INSULIN GLARGINE 100 UNITS/ML SQ SCH (20:48)
[2020-08-04] MEDS: HEPARIN 5000 UNIT/ML 1 ML VIAL SQ SCH ×3 (01:00→18:12)
[2020-08-04 05:51] LABS: Absolute Lymphocytes (CBC) 1.7 K/uL (0.7-4.9); Basophils % 0.8 % (0-1.3); Hematocrit 36.5 % (39.6-49.0); Lymphocytes % 34.4 % (15.3-44.8); MPV 8.8 fL (7.6-11.3); RBC Red Blood Cell Count 4.29 M/uL (4.33-5.43)
[2020-08-04 06:10] LABS: BUN Blood Urea Nitrogen 15 mg/dL (7-18); Bicarbonate 27 mmol/L (21-32); Glucose Level 119 mg/dL (74-106); Potassium 3.9 mmol/L (3.5-5.1); Sodium Level 141 mmol/L (136-145)
[2020-08-04] MEDS: LEVOTHYROXINE SOD 0.075 MG TAB PO SCH (06:10)
[2020-08-04] MEDS: INSULIN -REGULAR HUMAN 50 UNIT/0.5 ML ML SQ SCH ×4 (07:30→20:52)
[2020-08-04] MEDS ORDERED: POTASSIUM 25 MEQ EFFERV TAB PO ONE (09:00)
[2020-08-04] MEDS: Levofloxacin 750mg IV 750 MG/150 ML BAG IV SCH (10:04)
[2020-08-04] MEDS: PREGABALIN 75 MG CAP PO SCH ×2 (10:05→20:51)
[2020-08-04] MEDS: VANCOMYCIN 1.25 GM in NA CHLORIDE 0.9% 250 ML IVPB SCH ×2 (10:13→22:28)
[2020-08-04] MEDS: NA CHLORIDE 0.9% 1,000 ML IV SCH ×2 (11:25→18:14)
--- NOTE | 2020-08-04 11:26 | P.PN ---
Subjective Date of Service: 08/04/20 Chief Complaint: Infected left great toe wound. Patient has no complain. Deep tissue wound culture growing both MRSA and Pseudomonas both sensitive to levaquin. Physical Examination - Vital Signs Temperature: 97.6 F Blood Pressure: 128/62 Pulse: 68 Respirations: 16 Pulse Ox (%): 97 - Physical Exam General: Alert, In no apparent distress, Oriented x3 Neck: Supple, JVD not distended Respiratory: Clear to auscultation bilaterally, Normal air movement Cardiovascular: No edema, Regular rate/rhythm, Normal S1 S2 Gastrointestinal: Soft and benign, Non-distended, No tenderness Musculoskeletal: No swelling Integumentary: No rashes Neurological: Normal strength at 5/5 x4 extr Assessment And Plan - Current Problems (Diagnosis) (1) Wound of left foot Current Visit: Yes Status: Acute (2) Osteomyelitis of great toe Current Visit: Yes Status: Acute (3) Diabetes mellitus type 2 in nonobese Current Visit: Yes Status: Acute (4) Hypertension Current Visit: Yes Status: Acute - Plan Contain IV Levaquin. Discontinue vancomycin. PICC line placed for outpatient IV antibiotics at home with home health. Status post excision and debridement. Pain management as needed. Continue Insulin sliding scale and Lantus insulin for glucose management. Continue home antihypertensives. Waiting for home health health to be set up for the IV antibiotics.
[2020-08-04 15:25] VITALS: O2SAT 97
[2020-08-04] MEDS: INSULIN GLARGINE 100 UNITS/ML SQ SCH (20:52)
[2020-08-05] MEDS: NA CHLORIDE 0.9% 1,000 ML IV SCH ×2 (00:45→06:27)
[2020-08-05] MEDS: HEPARIN 5000 UNIT/ML 1 ML VIAL SQ SCH ×2 (01:12→08:30)
[2020-08-05] MEDS: LEVOTHYROXINE SOD 0.075 MG TAB PO SCH (06:24)
[2020-08-05] MEDS: INSULIN -REGULAR HUMAN 50 UNIT/0.5 ML ML SQ SCH ×2 (08:30→11:30)
[2020-08-05] MEDS: Levofloxacin 750mg IV 750 MG/150 ML BAG IV SCH (08:31)
[2020-08-05] MEDS: PREGABALIN 75 MG CAP PO SCH (08:31)
[2020-08-05] MEDS: VANCOMYCIN 1.25 GM in NA CHLORIDE 0.9% 250 ML IVPB SCH (10:25)
--- NOTE | 2020-08-05 11:33 | P.DS ---
Admission Date: 07/30/20 Discharge Date: 08/05/20 Disposition: DC HOME/HOME HEALTH CARE Discharge Condition: FAIR Reason for Admission: Infected left great toe wound. - Problems (1) Wound of left foot Status: Acute (2) Osteomyelitis of great toe Status: Acute (3) Diabetes mellitus type 2 in nonobese Status: Acute (4) Hypertension Status: Acute Brief History of Present Illness: 65-year-old man with a history of diabetes mellitus type 2 on insulin was r eferred to the emergency department by his PCP due to infected left great toe wound. Patient report cutting the tip of his left great while cutting his toe nail of 2 weeks ago. The wound did not heal, patient reports his left great toe got swollen and painful. He went to ED and was given a shot of clindamycin and discharged with oral clindamycin which improved the swelling a bit. He saw his PCP will order the MRI and noted patient has osteomyelitis. His PCP referred him to the ED to be admitted for IV antibiotics. Blood work done in the ED is unremarkable. Patient is hospitalized for further management. Hospital Course: Patient admitted to the medical floor and started on IV antibiotics-cefepime and vancomycin. He was seen and evaluated by Dr. Powell will performed excisional debridement of necrotic tissue. Per surgery report, the necrosis was close to the phalanx. Deep tissue wound culture grew Pseudomonas and MRSA both sensitive to Levaquin. Antibiotics changed to IV Levaquin. Patient seen and evaluated by infectious disease recommended 6 weeks of IV Levaquin. PICC line has been placed, patient is discharged complete 6 weeks of IV Levaquin at home with home health. Vital Signs/Physical Exam: Temp Pulse Resp BP Pulse Ox 98.1 F 71 20 139/66 98 08/05/20 08:00 08/05/20 08:00 08/05/20 08:00 08/05/20 08:00 08/05/20 08:00 General: Alert, In no apparent distress, Oriented x3 HEENT: Mucous membr. moist/pink Respiratory: Clear to auscultation bilaterally, Normal air movement Cardiovascular: No edema, Regular rate/rhythm, Normal S1 S2 Gastrointestinal: Soft and benign, Non-distended Musculoskeletal: No swelling Integumentary: No rashes Laboratory Data at Discharge: WBC 5.00 K/uL (4.3-10.9) 08/04/20 05:10 Hgb 11.8 g/dL (13.6-17.9) L 08/04/20 05:10 Hct 36.5 % (39.6-49.0) L 08/04/20 05:10 Plt Count 155 K/uL (152-406) 08/04/20 05:10 PT 11.2 SECONDS (9.5-12.5) 07/31/20 06:15 INR 0.97 07/31/20 06:15 Sodium 141 mmol/L (136-145) 08/04/20 05:10 Potassium 3.9 mmol/L (3.5-5.1) 08/04/20 05:10 BUN 15 mg/dL (7-18) 08/04/20 05:10 Creatinine 0.71 mg/dL (0.55-1.3) 08/04/20 05:10 Glucose 119 mg/dL (74-106) H 08/04/20 05:10 Phosphorus 4.3 mg/dL (2.5-4.9) 07/31/20 05:10 Magnesium 2.6 mg/dL (1.8-2.4) H 07/31/20 05:10 Total Bilirubin 0.4 mg/dL (0.2-1.0) 07/30/20 16:30 AST 24 U/L (15-37) 07/30/20 16:30 ALT 35 U/L (12-78) 07/30/20 16:30 Alkaline Phosphatase 145 U/L (45-117) H 07/30/20 16:30 Home Medications: Canagliflozin/Metformin HCl [Invokamet 150-1,000 mg Tablet] 1 tab PO BID 07/31/20 Insulin Glargine,Hum.rec.anlog [Toujeo Solostar] 30 unit SQ DAILY 07/31/20 Levothyroxine Sodium [Levothyroxine] 150 mcg PO DAILY 07/31/20 Lisinopril [Zestril] 1 tab PO DAILY 07/31/20 Pregabalin 1 cap PO BID 07/31/20 Physician Discharge Instructions: Wet to dry dressing daily. Diet: ADA Activity: Ad bao Followup: Radha Monsalve DO, DO [Primary Care Provider] - Rodrigo Powell MD [ACTIVE - CAN ADMIT] - 1 Week Time spent managing pt's care (in minutes): 33
[2020-08-05 15:05] VITALS: BP 131/60; TEMP 97.4
== END 2020-08-05 13:58 | disposition home health service (06) | DRG 264 ==
LOC: ER 16:00 → ERHOLD 17:51 → 2ND 07-31 10:55
PROVIDERS: ADMIT Internal Medicine; ATTEND Internal Medicine
PROC: 0JBR0ZZ Excision of Left Foot Subcutaneous Tissue and Fascia, Open Approach (ICD-10-PCS; principal; 2020-07-31 12:00)
PROC: 02HV33Z Insertion of Infusion Device into Superior Vena Cava, Percutaneous Approach (ICD-10-PCS; 2020-08-03)
DX: E11.52 Type 2 diabetes mellitus with diabetic peripheral angiopathy with gangrene (principal); I96 Gangrene, not elsewhere classified; M86.8X7 Other osteomyelitis, ankle and foot; E11.69 Type 2 diabetes mellitus with other specified complication; E03.9 Hypothyroidism, unspecified; I10 Essential (primary) hypertension; D64.9 Anemia, unspecified; B95.62 Methicillin resistant Staphylococcus aureus infection as the cause of diseases classified elsewhere; B96.5 Pseudomonas (aeruginosa) (mallei) (pseudomallei) as the cause of diseases classified elsewhere; Z79.4 Long term (current) use of insulin; Z79.890 Hormone replacement therapy; Z79.899 Other long term (current) drug therapy; Z20.822 Contact with and (suspected) exposure to COVID-19; Z23 Encounter for immunization
CPT/HCPCS: 36415; 36569; 71045; 80048; 80053; 80202; 82565; 82947; 83605; 83735; 84100; 84145; 85025; 85610; 87040; 87070; 87075; 87077; 87186; 87205; 88304; 90471; 90732; 96361; 96365; 96366; 99251; 99285; J0692; J1644; J1815; J2250; J2704; J3010; J3370; J7030; J7040; J7050; Q2035; U0003

== ENCOUNTER 2022-06-19 08:38 | Day surgery (SDC) | payer OTHER ==
[2022-06-18 09:22] LABS: Absolute Lymphocytes (CBC) 2.8 K/uL (0.7-4.9); Hematocrit 28.6 % (39.6-49.0); Lymphocytes % 33.3 % (15.3-44.8); MCV 84.6 fL (80-100); MPV 7.8 fL (7.6-11.3); RBC Red Blood Cell Count 3.38 M/uL (4.33-5.43)
[2022-06-18 09:41] LABS: Potassium 5.8 mmol/L (3.5-5.1)
--- NOTE | 2022-06-18 09:45 | RAD REPORT ---
EXAM DESCRIPTION: RAD - Chest Pa And Lat (2 Views) - 06/18/2022 9:29 am CLINICAL HISTORY: pre op pending toe amputations Chest pain. COMPARISON: Chest Single View dated 08/03/2020; Chest Pa And Lat (2 Views) dated 10/20/2017; Chest Pa And Lat (2 Views) dated 09/10/2016 FINDINGS: The lungs are clear. The heart is normal in size. No displaced fractures. IMPRESSION: No acute or concerning finding suspected.
[2022-06-19 10:12] VITALS: BP 141/62; TEMP 97.8; O2SAT 96
== END 2022-06-19 09:55 | disposition home or self-care (01) ==
LOC: OR 08:38
PROVIDERS: ATTEND Surgery
DX: M86.9 Osteomyelitis, unspecified (principal); S91.104A Unspecified open wound of right lesser toe(s) without damage to nail, initial encounter; Z53.09 Procedure and treatment not carried out because of other contraindication
CPT/HCPCS: 36415; 71046; 80048; 82947; 84132; 85025

== ENCOUNTER 2022-06-19 10:07 | Inpatient (IN) | payer OTHER ==
--- OUTSIDE RECORDS SUMMARY | 2022-06-19 10:11 | XMS REPORT | Continuity of Care Document ---
:1955 Author Organization [facility] t Address [address] [place] [address] Care Team Providers Name Role Phone MonsalveLambert fleming Tina Primary Care Physician RAKESH GARZA Attending Clinician Unavailable RAKESH GARZA Attending Clinician Unavailable Payers Payer Name Policy Type Policy Number Effective Date Expiration Date Daniel savage [facility] [id number] 2020 00:00:00 Problems Condition Condition Condition Status Onset Resolution Last Treating Co mments Source Name Details Category Date Date Treatment Clinician Date COVID-19 COVID-19 Disease Active [facility] 02-20 [facility] 00:00: 00 Postoperat Postoperat Disease Active [facility] T pam pam 02-20 Health follow-up follow-up 00:00: 00 PAD PAD Disease Active [facility] (periphera (periphera 930 He alth l artery l artery 00:00: disease) disease) 00 Non-healin Non-healin Disease Active [facility] T g g 12-06 Health non-surgic non-surgic 00:00: al wound al wound 00 PAOD PAOD Disease Active [facility] ([facility]iphera (periphera 16 He alth l arterial l arterial 00:00: occlusive occlusive 00 disease) disease) Allergies, Adverse Reactions, Alerts This patient has no known allergies or adverse reactions. Social History Social Habit Start Date Stop Date Quantity Comments Source Tobacco use and 2020-12-06 2020-12-06 Smokeless tobacco [facility] exposure 00:00:00 00:00:00 non-user Sex Assigned At [birth year] [facility] 00:00:00 00:00:00 Smoking Status Start Date Stop Date Source Never smoked tobacco [facility] Medications Ordered Filled Start Stop Current Ordering Indication Dosage Frequency Signature Comments Components Source Medication Medication Date Date Medication? Clinician (SIG) Name Name lisinopril 2020-05 Yes 1 (one) [facility] 2.5 MG 0-15 time each Health tablet 07:48: day at the 43 same time. lisinopril 2020- Yes 1 (one) [facility] 2.5 MG 0-15 time each Health tablet 07:48: day at the 43 same time. lisinopril 2020-0 Yes 1 (one) [facility] 2.5 MG 7-16 time each Health tablet 16:49: day at the 06 same time. lisinopril 2020-0 Yes 1 (one) [facility] 2.5 MG 7-16 time each Health tablet 11:49: day at the 06 same time. lisinopril 2020-0 Yes 1 (one) [facility] 2.5 MG 7-16 time each Health tablet 11:49: day at the 06 same time. Janumet 0 Yes [facility] 50-1000 MG 6-01 Health tablet 00:00: 00 Janumet 2020-0 Yes [facility] 50-1000 MG 6-01 Health tablet 00:00: 00 Janumet 2020-0 Yes [facility] 50-1000 MG 6-01 Health tablet 00:00: 00 Janumet 2020-0 Yes [facility] 50-1000 MG 6-01 Health tablet 00:00: 00 Janumet 2020-0 Yes [facility] 50-1000 MG 6-01 Health tablet 00:00: 00 levothyroxi 2020-0 Yes DAILY [facility] ne 3-10 Health (Tirosint) 00:00: 150 MCG 00 capsule pregabalin 2020-0 Yes 1{capsu 1 capsule. [facility] (Lyrica) 75 3-10 le} Health MG capsule 00:00: 00 levothyroxi 2020-0 Yes DAILY [facility] ne 3-10 Health (Tirosint) 00:00: 150 MCG 00 capsule pregabalin 2020-0 Yes 1{capsu 1 capsule. [facility] (Lyrica) 75 3-10 le} Health MG capsule 00:00: 00 levothyroxi 2020-0 Yes DAILY [facility] ne 3-10 Health (Tirosint) 00:00: 150 MCG 00 capsule pregabalin 0 Yes 1{capsu 1 capsule. [facility] (Lyrica) 75 3-10 le} Health MG capsule 00:00: 00 levothyroxi 2020-0 Yes DAILY [facility] ne 3-10 [facility] (Tirosint) 00:00: 150 MCG 00 capsule pregabalin 0 Yes 1{capsu 1 capsule. [facility] (Lyrica) 75 3-10 le} Health MG capsule 00:00: 00 levothyroxi 0 Yes DAILY [facility] ne 3-10 Health (Tirosint) 00:00: 150 MCG 00 capsule pregabalin 0 Yes 1{capsu 1 capsule. [facility] (Lyrica) 75 3-10 le} Health MG capsule 00:00: 00 Toujeo 0 Yes [facility] 300 UNIT/ML 00:00: injection 00 Toujeo 0 Yes [facility] 300 UNIT/ML 00:00: injection 00 Toujeo 0 Yes [facility] 300 UNIT/ML 00:00: injection 00 Toujeo 0 Yes [facility] 300 UNIT/ML 00:00: injection 00 Toujeo 0 Yes [facility] 300 UNIT/ML 00:00: injection 00 Procedures This patient has no known procedures. Encounters Start End Encounter Admission Attending Care Care Encounter Source Date/Time Date/Time Type Type Clinicians Facility Department ID 2021-06-13 Outpatient [facility], [facility] [id number] [place] [facility] [id number] [place] 09:49:39 Health 2021-06-03 Outpatient [facility] [id number] [place] 09:34:54 Health 2021-03-12 Outpatient [facility] [id number] [place] 09:38:19 Health 2021-03-12 Outpatient [facility] [id number] [place] 09:37:46 [facility] 2021-01-26 Outpatient KYALA, [facility] [id number] [place] 01:05:[address] [facility] 2021-01-20 Outpatient KAYLA, [facility] [id number] [place] 11:57:[address] [facility] 2020-12-11 Outpatient KAYLA, [facility] [id number] [place] 10:21:[address] [facility] 2021-06-12 2021-06-12 Telephonic Kayla, [facility] [id number] [place] 09:00:00 09:32:27 Encounter [facility] [id number] [facility] 1 [id number] 2 2021-03-06 2021-03-06 Telephonic Kayla, [facility] [id number] [place] 09:00:00 09:15:00 Encounter [facility] [id number] [facility] 1 [id number] 2 2021-02-20 2021-02-20 Telephonic Kayla, [facility] [id number] [place] 09:00:00 09:15:00 Encounter [facility] [id number] [facility] 1 [id number] 2020-12-26 2020-12-26 Outpatient KAYLA, [facility] [id number] 10:23:00 19:49:00 Merged with [facility] 2020-12-05 2020-12-05 Office Kayla, [facility] [id number] [place] 12:51:15 14:11:01 Visit [facility] [id number] He alth [facility] 1 [id number] 2 Results This patient has no known results.
[2022-06-19 11:15] LABS: Absolute Lymphocytes (CBC) 1.8 K/uL (0.7-4.9); Lymphocytes % 28.1 % (15.3-44.8); MCV 84.5 fL (80-100); MPV 7.7 fL (7.6-11.3); RBC Red Blood Cell Count 3.55 M/uL (4.33-5.43)
[2022-06-19 11:32] LABS: Albumin 2.7 g/dL (3.4-5.0); Bilirubin Total 0.2 mg/dL (0.2-1.0); Potassium 5.9 mmol/L (3.5-5.1); Protein, Total 7.2 g/dL (6.4-8.2)
[2022-06-19] MEDS ORDERED: NA CHLORIDE 0.9% 1,000 ML ONE (11:55)
[2022-06-19] MEDS ORDERED: SOD POLYSTYREN SUL 15 GM/60 ML UCUP ONE (11:55)
--- NOTE | 2022-06-19 13:08 | EDPHYS ---
Physician Documentation [facility] Name: Jeremy Conklin Age: 67 yrs Sex: Male : 1955 Arrival Date: 06/19/2022 Time: 10:10 Bed 7 Private MD: ED Physician Gama Woodard HPI: 06/19 14:16 This 67 yrs old Male presents to ER via Wheelchair with complaints of High rt Potassium, Sent From . 14:16 Patient presents to the ED from day surgery for hyperkalemia. Patient is scheduled to rt have an outpatient amputation of 2 of toes on his right foot. Labs were incidentally found to be hyperkalemic with a potassium of 6.1. He denies any specific complaints at this time, symptoms are moderate in severity, no aggravating or alleviating factors.. Historical: - Allergies: 10:28 No Known Allergies; vg1 - Home Meds: 10:28 levothyroxine oral [Active]; Lisinopril Oral [Active]; pregabalin Oral [Active]; vg1 Insulin Glargine Sub-Q [Active]; - PMHx: 10:28 Diabetes - NIDDM; Hypertension; Hypothyroidism; vg1 - Immunization history:: Client reports receiving the 2nd dose of the Covid vaccine. - Social history:: Smoking status: Patient denies any tobacco usage or history of. - Family history:: not pertinent. ROS: 14:16 Constitutional: Negative for fever, chills, and weight loss, Cardiovascular: Negative rt for chest pain, palpitations, and edema, Respiratory: Negative for shortness of breath, cough, wheezing, and pleuritic chest pain, Abdomen/GI: Negative for abdominal pain, nausea, vomiting, diarrhea, and constipation, Skin: Negative for injury, rash, and discoloration, Neuro: Negative for headache, weakness, numbness, tingling, and seizure, Psych: Negative for depression, anxiety, suicide ideation, homicidal ideation, and hallucinations. Exam: 14:15 ECG was reviewed by the Attending Physician. rt 14:16 Constitutional: This is a well developed, well nourished patient who is awake, alert, rt and in no acute distress. Head/Face: Normocephalic, atraumatic. Eyes: Pupils equal round and reactive to light, extra-ocular motions intact. Lids and lashes normal. Conjunctiva and sclera are non-icteric and not injected. Cornea within normal limits. Periorbital areas with no swelling, redness, or edema. Chest/axilla: Normal chest wall appearance and motion. Nontender with no deformity. No lesions are appreciated. Cardiovascular: Regular rate and rhythm with a normal S1 and S2. No gallops, murmurs, or rubs. Normal PMI, no JVD. No pulse deficits. Respiratory: Lungs have equal breath sounds bilaterally, clear to auscultation and percussion. No rales, rhonchi or wheezes noted. No increased work of breathing, no retractions or nasal flaring. Abdomen/GI: Soft, non-tender, with normal bowel sounds. No distension or tympany. No guarding or rebound. No evidence of tenderness throughout. Skin: Warm, dry with normal turgor. Normal color with no rashes, no lesions, and no evidence of cellulitis. Neuro: Awake and alert, GCS 15, oriented to person, place, time, and situation. Cranial nerves II-XII grossly intact. Motor strength 5/5 in all extremities. Sensory grossly intact. Cerebellar exam normal. Normal gait. Psych: Awake, alert, with orientation to person, place and time. Behavior, mood, and affect are within normal limits. 14:16 Musculoskeletal/extremity: Wound apparent to the right plantar region at the MTP, no active purulence, no erythema. Vital Signs: 10:23 BP 139 / 67; Pulse 73; Resp 13; Temp 98.2(O); Pulse Ox 100% on R/A; Weight 80.74 kg; vg1 Height 5 ft. 6 in. (167.64 cm); Pain 0/10; 11:25 BP 144 / 70; Pulse 74; Pulse Ox 100% ; ap3 12:04 BP 123 / 84; Pulse 77; Resp 18 S; Pulse Ox 100% on R/A; Pain 0/10; kc6 15:45 BP 128 / 70; Pulse 73; Resp 18 S; Pulse Ox 99% on R/A; kc6 10:23 Body Mass Index 28.73 (80.74 kg, 167.64 cm) vg1 MDM: 10:27 Patient medically screened. rt 14:16 Differential Diagnosis Hyperkalemia, renal failure. Data reviewed: vital signs, nurses rt notes, old medical records, lab test result(s), EKG. Consideration of Admission/Observation Patient was admitted/placed on observation. Management of patient was discussed with the following: Hospitalist: Agrees to admit. I considered the following discharge prescriptions or medication management in the emergency department Medications were administered in the Emergency Department. See MAR. Care significantly affected by the following chronic conditions: Diabetes. Counseling: I had a detailed discussion with the patient and/or guardian regarding: the need for further work-up and treatment in the hospital. 06/19 10:37 Order name: CBC with Diff; Complete Time: 11:34 rt 06/19 10:37 Order name: CMP; Complete Time: 11:34 rt 06/19 10:37 Order name: Magnesium; Complete Time: 11:34 rt 06/19 13:28 Order name: SARS RAPID eb 06/19 13:32 Order name: Urinalysis [facility] 06/19 13:32 Order name: Basic Metabolic Panel [facility] 06/19 13:32 Order name: Basic Metabolic Panel [facility] 06/19 13:32 Order name: Basic Metabolic Panel [facility] 06/19 13:32 Order name: Basic Metabolic Panel [facility] 06/19 13:32 Order name: CBC with Automated Diff [facility] 06/19 13:32 Order name: CBC with Automated Diff EDMS 06/19 13:32 Order name: CBC with Automated Diff ED[facility] 06/19 13:32 Order name: CBC with Automated Diff EDMS 06/19 13:32 Order name: Potassium [facility] 06/19 10:37 Order name: EKG; Complete Time: 10:38 rt 06/19 10:37 Order name: EKG - Nurse/Tech; Complete Time: 11:03 rt 06/19 13:32 Order name: 60g Consistent Carbohydrate (ADA 1800/2000) [facility] 06/19 15:07 Order name: Hemoglobin A1c [facility] EC:15 Rate is 70 beats/min. Rhythm is regular, Normal Sinus Rhythm with No ectopy. QRS Axtell rt is Normal. RI interval is normal. QRS interval is normal. QT interval is normal. No Q waves. T waves are Normal. No ST changes noted. Interpreted by me. Administered Medications: 12:03 Drug: NS 0.9% 1000 ml Route: IV; Rate: 1 bolus; Site: left hand; kc6 15:53 Follow up: Response: No adverse reaction; IV Status: Completed infusion; IV Intake: kc6 1000ml 12:04 Drug: Kayexalate (polystyrene) 60 grams Route: PO; kc6 15:53 Follow up: Response: No adverse reaction kc6 Disposition Summary: 06/19/22 13:07 Hospitalization Ordered Hospitalization Status: Observation rt Provider: Boaz Hu rt Location: Telemetry/MedSurg (observation) rt Condition: Stable rt Problem: new rt Symptoms: are unchanged rt Bed/Room Type: Standard rt Room Assignment: [facility](06/19/22 14:22) eb Diagnosis - Hyperkalemia rt Forms: - Medication Reconciliation Form rt - SBAR form rt Signatures: Dispatcher [employer] EDAdenike Gardner Victoria RN RN vg1 Rebecca Billingsley RN RN kc6 Gama Woodard MD MD rt Corrections: (The following items were deleted from the chart) 14: 13:07 rt eb
--- NOTE | 2022-06-19 13:08 | ER ---
Nurse's Notes [facility] Name: Jeremy Conklin Age: 67 yrs Sex: Male : 1955 Arrival Date: 06/19/2022 Time: 10:10 Bed 7 Private MD: Diagnosis: Hyperkalemia Presentation: 06/19 10:23 Chief complaint: Spouse and/or significant other states: Pt was sent from due to vg1 elevated Potassium. Potassium yesterday, 06/18/22, was 5.8; rechecked today and Potassium was 6.1. Pt denies any SOB or CP at this time. Initial Sepsis Screen: Does the patient meet any 2 criteria? No. Patient's initial sepsis screen is negative. Does the patient have a suspected source of infection? No. Patient's initial sepsis screen is negative. Risk Assessment: Do you want to hurt yourself or someone else? Patient reports no desire to harm self or others. Onset of symptoms was June 18, 2022. 10:23 Method Of Arrival: Wheelchair vg1 10:23 Acuity: DARLENE 3 vg1 10:23 Care prior to arrival: IV initiated. 22 GA, in the left hand, COMPLETED IN DAY SURGERY. vg1 10:28 Coronavirus screen: Vaccine status: Patient reports receiving the 2nd dose of the covid vg1 vaccine. Client denies travel out of the [place] in the last 14 days. Ebola Screen: Patient negative for fever greater than or equal to 101.5 degrees Fahrenheit, and additional compatible Ebola Virus Disease symptoms. Triage Assessment: 10:23 General: Appears in no apparent distress. Behavior is calm, cooperative. Pain: Denies vg1 pain. EENT: No signs and/or symptoms were reported regarding the EENT system. Neuro: Level of Consciousness is awake, alert, obeys commands, Oriented to person, place, time, situation. Cardiovascular: Patient's skin is warm and dry. Respiratory: Airway is patent Respiratory effort is even, unlabored. GI: No signs and/or symptoms were reported involving the gastrointestinal system. Abdomen is round non-distended, Abd is soft and non tender X 4 quads. : No signs and/or symptoms were reported regarding the genitourinary system. Derm: Skin is pink, warm \T\ dry. Musculoskeletal: Circulation, motion, and sensation intact. Historical: - Allergies: 10:28 No Known Allergies; vg1 - Home Meds: 10:28 levothyroxine oral [Active]; Lisinopril Oral [Active]; pregabalin Oral [Active]; vg1 Insulin Glargine Sub-Q [Active]; - PMHx: 10:28 Diabetes - NIDDM; Hypertension; Hypothyroidism; vg1 - Immunization history:: Client reports receiving the 2nd dose of the Covid vaccine. - Social history:: Smoking status: Patient denies any tobacco usage or history of. - Family history:: not pertinent. Screenin:32 [facility] ED Fall Risk Assessment (Adult) History of falling in the last 3 months, vg1 including since admission No falls in past 3 months (0 pts) Confusion or Disorientation No (0 pts) Intoxicated or Sedated No (0 pts) Impaired Gait No (0 pts) Mobility Assist Device Used Yes (1 pt) Altered Elimination No (0 pt) Score/Fall Risk Level 0 - 2 = Low Risk Oriented to surroundings, Maintained a safe environment, Educated pt \T\ family on fall prevention, incl call for assistance when getting out of bed, Assessed \T\ reinforced patient's understanding of fall precautions. Abuse screen: Denies threats or abuse. Nutritional screening: No deficits noted. Tuberculosis screening: No symptoms or risk factors identified. Assessment: 10:45 General: Appears in no apparent distress. comfortable, Behavior is calm, cooperative, kc6 appropriate for age. Pain: Denies pain. Neuro: Cardoso Agitation-Sedation Scale (RASS): 0 - Alert and Calm Level of Consciousness is awake, alert, obeys commands, Oriented to person, place, time, situation, Appropriate for age. Cardiovascular: Heart tones S1 S2 present Capillary refill < 3 seconds Rhythm is sinus rhythm. Respiratory: Airway is patent Trachea midline Respiratory effort is even, unlabored, Respiratory pattern is regular, symmetrical, Breath sounds are clear bilaterally. GI: No signs and/or symptoms were reported involving the gastrointestinal system. : No signs and/or symptoms were reported regarding the genitourinary system. EENT: No signs and/or symptoms were reported regarding the EENT system. Derm: No signs and/or symptoms reported regarding the dermatologic system. Skin is intact, Skin is pink, warm \T\ dry. Musculoskeletal: No signs and/or symptoms reported regarding the musculoskeletal system. Circulation, motion, and sensation intact. Capillary refill < 3 seconds, Range of motion: intact in all extremities. 11:45 Reassessment: Patient appears in no apparent distress at this time. No changes from [facility] previously documented assessment. Patient and/or family updated on plan of care and expected duration. Pain level reassessed. Patient is alert, oriented x 3, equal unlabored respirations, skin warm/dry/pink. 12:45 Reassessment: Patient appears in no apparent distress at this time. No changes from kc previously documented assessment. Patient and/or family updated on plan of care and expected duration. Pain level reassessed. Patient is alert, oriented x 3, equal unlabored respirations, skin warm/dry/pink. 13:45 Reassessment: Patient appears in no apparent distress at this time. No changes from [facility] previously documented assessment. Patient and/or family updated on plan of care and expected duration. Pain level reassessed. Patient is alert, oriented x 3, equal unlabored respirations, skin warm/dry/pink. 14:45 Reassessment: Patient appears in no apparent distress at this time. No changes from kc previously documented assessment. Patient and/or family updated on plan of care and expected duration. Pain level reassessed. Patient is alert, oriented x 3, equal unlabored respirations, skin warm/dry/pink. 15:45 Reassessment: Patient appears in no apparent distress at this time. No changes from [facility] previously documented assessment. Patient and/or family updated on plan of care and expected duration. Pain level reassessed. Patient is alert, oriented x 3, equal unlabored respirations, skin warm/dry/pink. 15:45 Reassessment: attempted to call report to 4th floor. stated the nurse is in a patient 6 room and will call me back. 16:00 Reassessment: attempted to call report to 4th floor. on hold, no answer. [facility] Vital Signs: 10:23 BP 139 / 67; Pulse 73; Resp 13; Temp 98.2(O); Pulse Ox 100% on R/A; Weight 80.74 kg; vg1 Height 5 ft. 6 in. (167.64 cm); Pain 0/10; 11:25 BP 144 / 70; Pulse 74; Pulse Ox 100% ; ap3 12:04 BP 123 / 84; Pulse 77; Resp 18 S; Pulse Ox 100% on R/A; Pain 0/10; kc6 15:45 BP 128 / 70; Pulse 73; Resp 18 S; Pulse Ox 99% on R/A; kc6 10:23 Body Mass Index 28.73 (80.74 kg, 167.64 cm) vg1 ED Course: 10:10 Patient arrived in ED. rg4 10:13 Gama Woodard MD is Attending Physician. rt 10:23 Arm band placed on. vg1 10:26 Triage completed. vg1 10:32 Patient has correct armband on for positive identification. Placed in gown. Bed in low vg1 position. Call light in reach. Side rails up X2. Adult w/ patient. Client placed on continuous cardiac and pulse oximetry monitoring. NIBP monitoring applied. 10:59 Rebecca Billingsley, RN is Primary Nurse. kc6 11:08 Magnesium Sent. kc6 11:08 CMP Sent. kc6 11:08 CBC with Diff Sent. kc6 13:06 Boaz Hu is Hospitalizing Provider. rt 16:08 No provider procedures requiring assistance completed. Patient admitted, IV remains in kc6 place. Administered Medications: 12:03 Drug: NS 0.9% 1000 ml Route: IV; Rate: 1 bolus; Site: left hand; kc6 15:53 Follow up: Response: No adverse reaction; IV Status: Completed infusion; IV Intake: kc6 1000ml 12:04 Drug: Kayexalate (polystyrene) 60 grams Route: PO; kc6 15:53 Follow up: Response: No adverse reaction [facility] Medication: 10:33 VIS not applicable for this client. vg1 Intake: 15:53 IV: 1000ml; Total: 1000ml. kc6 Outcome: 13:07 Decision to Hospitalize by Provider. rt 16:08 Admitted to Med/surg kc6 16:08 Condition: stable 16:08 Instructed on the need for admit. 17:08 Patient left the ED. 6 Signatures: Yvette Nolen rg4 Mellisa Deng RN RN ap3 Rafia Nolen RN RN vg1 Rebecca Billingsley, ROLAND RN kc6 Gama Woodard MD MD rt Corrections: (The following items were deleted from the chart) 10:31 10:23 BP 139 / 67; Pulse 73bpm; Resp 13bpm; Pulse Ox 100% RA; Pain 0/10; vg1 vg1
[2022-06-19] MEDS ORDERED: ACETAMINOPHEN 500 MG TAB PO PRN ×2 (13:21→13:44)
[2022-06-19] MEDS ORDERED: ONDANSETRON 4 MG/2 ML VIAL IV PRN (13:21)
[2022-06-19] MEDS ORDERED: SOD POLYSTYREN SUL 15 GM/60 ML UCUP PO ONE ×2 (13:25→22:23)
[2022-06-19] MEDS ORDERED: NA CHLORIDE 0.9% 1,000 ML IV SCH (14:00)
--- NOTE | 2022-06-19 14:15 | P.HP ---
Certification for Inpatient Patient admitted to: Observation With expected LOS: <2 Midnights Patient will require the following post-hospital care: None Practitioner: I am a practitioner with admitting privileges, knowledge of patient current condition, hospital course, and medical plan of care. Services: Services provided to patient in accordance with Admission requirements found in Title 42 Section 412.3 of the Code of Federal Regulations Patient History Date of Service: 06/19/22 Primary Care Provider: Gricel Reason for admission: Hyperkalemia/Osteomyelitis of right foot History of Present Illness: 66-year-old male with history of diabetes mellitus type 2insulin-dependent, hypertension, and hypothyroidism presents the emergency department for abnormal labs. Patient reports getting pre-op labs yesterday, results were reported to him, and was alerted that his potassium was 5.8. Per patient, they instructed him to drink some fluids and redraw the labs the next day. Labs were redrawn today, and it resulted in a potassium of 6.1. Patient was instructed to go to the ER for further evaluation and treatment. Per , patient exhibited no symptoms. Patient is scheduled to have a right foot/2 toe amputation. Patient also stated he is currently on Bactrim for right foot osteomyelitis. The antibiotic treatment was started on Wednesday. In the ER, his lab was significant for a potassium of 5.9. Patient was treated with Kayexalate. Patient will be admitted under the care of Dr. Hu. Surgery and infectious disease will be consulted for further management and recommendation. Allergies No Known Allergies Allergy (Verified 06/18/22 08:55) Home Medications: Levothyroxine Sodium [Levothyroxine] 150 mcg PO DAILY 07/31/20 Lisinopril [Zestril] 2 tab PO BID 07/31/20 Pregabalin 1 cap PO BID 07/31/20 Insulin Glargine,Hum.rec.anlog [Tammy Solsanthosh] 28 units SQ DAILY 03/04/22 Sitagliptin Phos/Metformin HCl [Janumet 50-1,000 mg Tablet] 1 tab PO BID 03/04/22 - Past Medical/Surgical History Diabetic: Yes -: IDDM -: KIDNEY DISEASE -: HYPOTHYROIDISM -: Neuropathy -: HTN -: BROKEN LEFT ARM SURGERY-1995 -: Left great toe debridement 07/2020 Psychosocial/ Personal History: Patient is retired, on disability lives at home with his family. - Family History Brother -: Diabetes Notes: 2 brothers Sister -: Diabetes Notes: 3 sisters Father -: Diabetes - Social History Alcohol use: Yes CD- Drugs: No Caffeine use: Yes Review of Systems 10-point ROS is otherwise unremarkable Musculoskeletal: As per HPI Physical Examination - Vital Signs Temperature: 98.2 F Blood Pressure: 142/75 Pulse: 71 Respirations: 18 Pulse Ox (%): 100 - Physical Exam General: Alert, In no apparent distress, Oriented x3 HEENT: Atraumatic, Normocephalic, PERRLA Neck: Supple, 2+ carotid pulse no bruit Respiratory: Clear to auscultation bilaterally, Normal air movement Cardiovascular: No edema, Regular rate/rhythm Capillary refill: <2 Seconds Gastrointestinal: Normal bowel sounds Musculoskeletal: Other (right foot osteomyelitis) Integumentary: No rashes Neurological: Normal speech, Normal strength at 5/5 x4 extr, Normal tone Lymphatics: No axilla or inguinal lymphadenopathy - Studies Laboratory Data (last 24 hrs) 06/19/22 11:06: Sodium 139, Potassium 5.9 H*, BUN 24 H, Creatinine 1.29, Glucose 100, Magnesium 2.0, Total Bilirubin 0.2, AST 15, ALT 18, Alkaline Phosphatase 179 H 06/19/22 11:06: WBC 6.60, Hgb 9.8 L, Hct 30.0 L, Plt Count 233 Assessment and Plan - Plan Assessment 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 Diabetes mellitus type 2insulin-dependent Right foot osteomyelitis on Bactrim Hypertension Hypothyroidism Plan 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 Treated in the emergency with Kayexalate, repeat potassium pending Continue IV fluids normal saline at 125 ml/hr for 1 liter This is possibly related to Bactrim Hold his Lisinopril for the time being Nephrology consulted, recommendation appreciated This is his second hospitalization related to Bactrim induced RTA Diabetes mellitus type 2insulin-dependent Accu-Cheks before meals and at bedtime, sliding scale insulin A1C pending, last A1C 8.5 (03/14) Right foot osteomyelitis on Bactrim Hold Bactrim Start Cefepime Surgery consulted, recommendations appreciated Infectious disease consulted, recommendations appreciated Hypertension: Hold Lisinopril, start other agents as indicated. Hypothyroidism: Continue home medication DVT PPX- SCDs Code Status- Full Code Discharge Plan: Home Plan to discharge in: 48 Hours - Advance Directives Does patient have a Living Will: No Does patient have a Durable POA for Healthcare: No - Code Status/Comfort Care Code Status Assessed: Yes (Full code) Critical Care: No Time Spent Managing Pts Care (In Minutes): 50
[2022-06-19 14:18] LABS: SARS-CoV-2 Antigen Rapid Res Negative (Negative)
[2022-06-19] MEDS: INSULIN -REGULAR HUMAN 50 UNIT/0.5 ML ML SQ SCH ×2 (16:30→20:03)
[2022-06-19] MEDS: CEFEPIME 2 GM in NA CHLORIDE 0.9% 100 ML IV SCH ×2 (17:22→20:25)
[2022-06-19 17:55] VITALS: BMI 28.7
[2022-06-19] MEDS ORDERED: INFLUENZA VACCINE (for 6+ mo) 0.5 ML DOSE IMVAC ONE (18:00)
[2022-06-19] MEDS: PREGABALIN 75 MG CAP PO SCH (20:21)
[2022-06-19] MEDS ORDERED: VANCOMYCIN 2 GM in NA CHLORIDE 0.9% 500 ML IVPB ONE (21:00)
[2022-06-19] MEDS ORDERED: SODIUM ZIRCONIUM CYCLOSILICATE 10 GM/PKT PO ONE (22:00)
[2022-06-19 23:08] LABS: Specific Gravity 1.007 (1.005-1.030); Urine Bacteria <20 /HPF (<20); Urine Bilirubin NEGATIVE (Negative); Urine Blood Negative (Negative); Urine Clarity Clear (Clear); Urine Color Colorless (Yellow); Urine Glucose 1+ (Negative); Urine Protein TRACE (Negative); Urine RBC <5 /HPF (None Seen); Urine Urobilinogen Normal (Normal)
[2022-06-19 23:10] LABS: UR PROTEIN 24.7 mg/dL (<11.9)
[2022-06-19 23:14] LABS: UR CREAT < 18.0 mg/dL (20-370)
[2022-06-20 04:09] LABS: Absolute Lymphocytes (CBC) 1.9 K/uL (0.7-4.9); Lymphocytes % 34.5 % (15.3-44.8); MCV 84.9 fL (80-100); RBC Red Blood Cell Count 3.06 M/uL (4.33-5.43)
[2022-06-20 04:20] LABS: Potassium 4.8 mmol/L (3.5-5.1)
[2022-06-20] MEDS: LEVOTHYROXINE SOD 0.075 MG TAB PO SCH (05:54)
[2022-06-20] MEDS ORDERED: LEVOTHYROXINE SOD 0.125 MG TAB PO SCH (06:30)
[2022-06-20] MEDS ORDERED: LEVOTHYROXINE SOD 0.025 MG TAB PO SCH (06:30)
[2022-06-20] MEDS: INSULIN -REGULAR HUMAN 50 UNIT/0.5 ML ML SQ SCH ×4 (07:30→21:37)
[2022-06-20] MEDS ORDERED: SODIUM ZIRCONIUM CYCLOSILICATE 10 GM/PKT PO ONE (08:00)
[2022-06-20] MEDS: PREGABALIN 75 MG CAP PO SCH (08:15)
[2022-06-20] MEDS: CEFEPIME 2 GM in NA CHLORIDE 0.9% 100 ML IV SCH ×2 (08:15→20:30)
--- NOTE | 2022-06-20 14:06 | P.DS ---
Admission Date: 06/19/22 Discharge Date: 06/20/22 Primary Care Provider: Gricel Disposition: ROUTINE DISCHARGE Discharge Condition: FAIR Reason for Admission: Hyperkalemia/Osteomyelitis of right foot Brief History of Present Illness: 66-year-old male with history of diabetes mellitus type 2insulin-dependent, hypertension, and hypothyroidism presents the emergency department for abnormal labs. Patient reports getting pre-op labs yesterday, results were reported to him, and was alerted that his potassium was 5.8. Per patient, they instructed him to drink some fluids and redraw the labs the next day. Labs were redrawn today, and it resulted in a potassium of 6.1. Patient was instructed to go to the ER for further evaluation and treatment. Per , patient exhibited no symptoms. Patient is scheduled to have a right foot/2 toe amputation. Patient also stated he is currently on Bactrim for right foot osteomyelitis. The antibiotic treatment was started on Wednesday. In the ER, his lab was significant for a potassium of 5.9. Patient was treated with Kayexalate. Patient will be admitted under the care of Dr. Hu. Surgery and infectious disease will be consulted for further management and recommendation. Vital Signs/Physical Exam: Temp Pulse Resp BP Pulse Ox 97.5 F 77 16 159/67 H 98 06/20/22 12:00 06/20/22 12:00 06/20/22 12:00 06/20/22 12:00 06/20/22 12:00 Laboratory Data at Discharge: WBC 5.40 K/uL (4.3-10.9) 06/20/22 03:35 Hgb 8.5 g/dL (13.6-17.9) L D 06/20/22 03:35 Hct 26.0 % (39.6-49.0) L 06/20/22 03:35 Plt Count 203 K/uL (152-406) 06/20/22 03:35 Sodium 142 mmol/L (136-145) 06/20/22 03:35 Potassium 4.8 mmol/L (3.5-5.1) 06/20/22 03:35 BUN 22 mg/dL (7-18) H 06/20/22 03:35 Creatinine 1.05 mg/dL (0.70-1.30) 06/20/22 03:35 Glucose 115 mg/dL (74-106) H 06/20/22 03:35 Magnesium 2.0 mg/dL (1.6-2.4) 06/19/22 11:06 Total Bilirubin 0.2 mg/dL (0.2-1.0) 06/19/22 11:06 AST 15 U/L (15-37) 06/19/22 11:06 ALT 18 U/L (16-61) 06/19/22 11:06 Alkaline Phosphatase 179 U/L (45-117) H 06/19/22 11:06 Home Medications: Levothyroxine Sodium [Levothyroxine] 150 mcg PO DAILY 07/31/20 Lisinopril [Zestril] 2 tab PO BID 07/31/20 Insulin Glargine,Hum.rec.anlog [Toujeo Solostar] 28 units SQ BEDTIME 03/04/22 Sitagliptin Phos/Metformin HCl [Janumet 50-1,000 mg Tablet] 1 tab PO BID 03/04/22 Pregabalin 100 mg PO BID 06/19/22 Amox/Clavulanate [Augmentin 875-125 Tab] 1 each PO BID #14 tab 06/20/22 Doxycycline Hyclate 100 mg PO BID #14 cap 06/20/22 New Medications: Amox/Clavulanate [Augmentin 875-125 Tab] 1 each PO BID #14 tab Doxycycline Hyclate 100 mg PO BID #14 cap Diet: ADA Activity: Ad bao Followup: Radha Monsalve DO, DO [Primary Care Provider] - Kyle Redd MD [ACTIVE - CAN ADMIT] - 1 Week
--- NOTE | 2022-06-20 14:18 | P.PN ---
Subjective Date of Service: 06/20/22 Primary Care Provider: Gricel Chief Complaint: Hyperkalemia/Osteomyelitis of right foot Patient has no new complaint. He denies any pain. Hyperkalemia resolved. Physical Examination - Vital Signs Temperature: 97.5 F Blood Pressure: 159/67 Pulse: 77 Respirations: 16 Pulse Ox (%): 98 Assessment And Plan - Current Problems (Diagnosis) (1) Diabetic foot ulcer Current Visit: Yes Status: Acute (2) Osteomyelitis of foot Current Visit: Yes Status: Acute (3) Hyperkalemia Current Visit: Yes Status: Acute (4) Diabetes mellitus type 2 in nonobese Current Visit: No Status: Acute - Plan Physical Exam General: Alert, In no apparent distress, Oriented x3 Neck: Supple, no elevated JVD. Respiratory: Clear to auscultation bilaterally, Normal air movement Cardiovascular: No edema, Regular rate/rhythm Gastrointestinal: Normal bowel sounds, no tenderness Integumentary: Erythema on the distal one third dorsal aspect of the right foot, ulcer on the plantar aspect of base of the right second toe. Neurological: Normal speech, Normal strength at 5/5 x4 extr Plan: Hyperkalemia secondary to Bactrim induced type IV RTA-currently resolved. Status post Kayexalate and Lokelma. Bactrim discontinued. Lisinopril is on hold. Nephrology input appreciated. Repeat potassium level. MRI of the right foot demonstrating osteomyelitis of the right second and third digits. Dr. Redd is planning amputation of toes digits. Continue IV antibiotics until amputation. Local wound care. Glucose management with long-acting insulin and insulin sliding scale.
--- NOTE | 2022-06-20 14:20 | P.CNS ---
Date of Consult: 06/20/22 Reason for Consult: Hyperkalemia Requesting Physician: tai maloney Primary Care Provider: Gricel Chief Complaint: Hyperkalemia/Osteomyelitis of right foot History of Present Illness: 67M w/ PMHx of Htn & DM2 c/b DM R foot ulcer who had outside labs done which showed hyperkalemia 6.1. Urine K low. He received kayexalate & lokelma. HyperK improved. Allergies No Known Allergies Allergy (Verified 06/18/22 08:55) Home Medications: Levothyroxine Sodium [Levothyroxine] 150 mcg PO DAILY 07/31/20 Lisinopril [Zestril] 2 tab PO BID 07/31/20 Insulin Glargine,Hum.rec.anlog [Toujeo Solostar] 28 units SQ BEDTIME 03/04/22 Sitagliptin Phos/Metformin HCl [Janumet 50-1,000 mg Tablet] 1 tab PO BID 03/04/22 Pregabalin 100 mg PO BID 06/19/22 Amox/Clavulanate [Augmentin 875-125 Tab] 1 each PO BID #14 tab 06/20/22 Doxycycline Hyclate 100 mg PO BID #14 cap 06/20/22 - Past Medical/Surgical History Diabetic: Yes -: IDDM -: KIDNEY DISEASE -: HYPOTHYROIDISM -: Neuropathy -: HTN -: BROKEN LEFT ARM SURGERY-1995 -: Left great toe debridement 07/2020 Psychosocial/ Personal History: Patient is retired, on disability lives at home with his family. - Family History Brother Medical History: Diabetes Notes: 2 brothers Sister Medical History: Diabetes Notes: 3 sisters Father Medical History: Diabetes - Social History Alcohol use: No CD- Drugs: No Caffeine use: No Place of Residence: Home Review of Systems General: Weakness Eyes: Unremarkable ENT: Unremarkable Respiratory: Unremarkable Cardiovascular: Unremarkable Gastrointestinal: Unremarkable Genitourinary: Unremarkable Musculoskeletal: Foot Pain (R foot pain), Other (+R foot wound) Integumentary: Unremarkable Neurological: Weakness Lymphatics: Unremarkable Physical Examination Temp Pulse Resp BP Pulse Ox 97.5 F 77 16 159/67 H 98 06/20/22 14:18 06/20/22 14:18 06/20/22 14:18 06/20/22 14:18 06/20/22 14:18 General: In no apparent distress HEENT: Atraumatic, Normocephalic Neck: Supple Respiratory: Clear to auscultation bilaterally Cardiovascular: No rubs, No murmurs Gastrointestinal: Soft and benign Musculoskeletal: No clubbing Integumentary: Other (+R foot wound) Neurological: Normal tone Urinary: Other (No bladder distention) External genitalia: Deferred Rectal: Deferred Conclusions/Impression: # Hyperkalemia 2/2 bactrim & lisinopril Random urine K low, indicative of kaliuresis inhibition from bactrim & lisinopril Avoid bactrim, ACEI, ARB, NSAIDs Give Lokelma today Low K diet # Htn Cont current med regimen # R DM foot ulcer/osteomyelitis IV abx For R 2nd & 3rd digit amputation # DM2 Mngt per primary team
[2022-06-20] MEDS: SODIUM ZIRCONIUM CYCLOSILICATE 10 GM/PKT PO SCH ×2 (15:10→23:21)
[2022-06-20] MEDS: VANCOMYCIN 1.5 GM in NA CHLORIDE 0.9% 500 ML IVPB SCH (15:54)
[2022-06-20] MEDS: PREGABALIN 50 MG CAP PO SCH (20:33)
[2022-06-20] MEDS ORDERED: VANCOMYCIN 1.5 GM in NA CHLORIDE 0.9% 500 ML IVPB SCH (21:00)
[2022-06-20] MEDS: INSULIN GLARGINE 100 UNIT/ML SQ SCH (21:36)
[2022-06-21] MEDS: LEVOTHYROXINE SOD 0.075 MG TAB PO SCH (05:51)
[2022-06-21] MEDS: INSULIN -REGULAR HUMAN 50 UNIT/0.5 ML ML SQ SCH ×4 (07:30→21:00)
[2022-06-21 08:22] LABS: Absolute Lymphocytes (CBC) 2.1 K/uL (0.7-4.9); Hematocrit 27.8 % (39.6-49.0); Lymphocytes % 37.3 % (15.3-44.8); MPV 7.7 fL (7.6-11.3); RBC Red Blood Cell Count 3.31 M/uL (4.33-5.43)
[2022-06-21] MEDS: CEFEPIME 2 GM in NA CHLORIDE 0.9% 100 ML IV SCH ×2 (08:32→21:25)
[2022-06-21] MEDS: PREGABALIN 50 MG CAP PO SCH ×2 (08:32→21:26)
[2022-06-21 08:33] LABS: Potassium 3.7 mmol/L (3.5-5.1)
[2022-06-21] MEDS: VANCOMYCIN 1.5 GM in NA CHLORIDE 0.9% 500 ML IVPB SCH (09:56)
--- NOTE | 2022-06-21 12:36 | P.PN ---
Subjective Date of Service: 06/21/22 Primary Care Provider: Gricel Chief Complaint: Hyperkalemia/Osteomyelitis of right foot No new complain. Patient potassium level has been stable. He denies any pain. Physical Examination - Vital Signs Temperature: 97.6 F Blood Pressure: 130/58 Pulse: 71 Respirations: 18 Pulse Ox (%): 99 Assessment And Plan - Current Problems (Diagnosis) (1) Diabetic foot ulcer Current Visit: Yes Status: Acute (2) Osteomyelitis of foot Current Visit: Yes Status: Acute (3) Hyperkalemia Current Visit: Yes Status: Acute (4) Diabetes mellitus type 2 in nonobese Current Visit: No Status: Acute - Plan Physical Exam General: Alert, In no apparent distress, Oriented x3 Neck: Supple, no elevated JVD. Respiratory: Clear to auscultation bilaterally, Normal air movement Cardiovascular: No edema, Regular rate/rhythm Gastrointestinal: Normal bowel sounds, no tenderness Integumentary: Erythema on the distal one third dorsal aspect of the right foot, ulcer on the plantar aspect of base of the right second toe. Neurological: No focal motor deficit. Plan: Hyperkalemia secondary to Bactrim induced type IV RTA-currently resolved. Status post Kayexalate and Lokelma. Bactrim discontinued. Lisinopril is on hold. Nephrology is following. He is currently normokalemic. MRI of the right foot demonstrating osteomyelitis of the right second and third digits. Dr. Redd is planning amputation of those digits tomorrow. IV antibiotics until amputation. Local wound care. Glucose management with long-acting insulin and insulin sliding scale.
--- NOTE | 2022-06-21 15:53 | P.PN ---
Subjective Date of Service: 06/21/22 Primary Care Provider: Gricel Chief Complaint: Hyperkalemia/Osteomyelitis of right foot Subjective: Other (No urinary complaints.) Physical Examination - Vital Signs Temperature: 97.6 F Blood Pressure: 130/58 Pulse: 71 Respirations: 18 Pulse Ox (%): 99 - Physical Exam General: In no apparent distress HEENT: Atraumatic, Normocephalic Neck: Supple Respiratory: Clear to auscultation bilaterally Cardiovascular: No rubs, No murmurs Gastrointestinal: Soft and benign, No guarding Musculoskeletal: No clubbing Integumentary: No warmth Neurological: Normal speech, Normal tone Urinary: Other (No bladder distention) External genitalia: Deferred Rectal: Deferred Assessment And Plan - Plan # Hyperkalemia 2/2 bactrim & lisinopril Resolved Random urine K low, indicative of kaliuresis inhibition from bactrim & lisinopril Avoid bactrim, ACEI, ARB, NSAIDs Received Lokelma Low K diet # Htn Cont current med regimen # R DM foot ulcer/osteomyelitis IV abx For R 2nd & 3rd digit amputation # DM2 Mngt per primary team
[2022-06-21] MEDS: INSULIN GLARGINE 100 UNIT/ML SQ SCH (21:00)
[2022-06-21] MEDS ORDERED: HYDRALAZINE HCL 20 MG/ML VIAL IV PRN (22:04)
[2022-06-21] MEDS ORDERED: TRAMADOL HCL 50 MG TAB PO ONE (22:04)
[2022-06-22] MEDS: VANCOMYCIN 1.5 GM in NA CHLORIDE 0.9% 500 ML IVPB SCH ×2 (04:04→23:00)
[2022-06-22 04:10] LABS: Absolute Lymphocytes (CBC) 2.1 K/uL (0.7-4.9); Hematocrit 27.3 % (39.6-49.0); Lymphocytes % 36.4 % (15.3-44.8); MCV 83.9 fL (80-100); RBC Red Blood Cell Count 3.26 M/uL (4.33-5.43)
[2022-06-22 04:25] LABS: Potassium 3.5 mmol/L (3.5-5.1)
[2022-06-22] MEDS: LEVOTHYROXINE SOD 0.075 MG TAB PO SCH (05:26)
[2022-06-22] MEDS: INSULIN -REGULAR HUMAN 50 UNIT/0.5 ML ML SQ SCH ×4 (07:30→21:54)
[2022-06-22 07:32] LABS: Magnesium 1.8 mg/dL (1.6-2.4); Phosphorus 3.4 mg/dL (2.5-4.9)
--- NOTE | 2022-06-22 08:38 | P.CNS ---
Date of Consult: 06/22/22 Primary Care Provider: Gricel Chief Complaint: Hyperkalemia/Osteomyelitis of right foot History of Present Illness: 66-year-old male with history of diabetes mellitus type 2 insulin-dependent, hypertension, and hypothyroidism presents the emergency department for abnormal labs. Patient reports getting pre-op labs yesterday, results were reported to him, and was alerted that his potassium was 5.8. Per patient, they instructed him to drink some fluids and redraw the labs the next day. Labs were redrawn today, and it resulted in a potassium of 6.1. Patient was instructed to go to the ER for further evaluation and treatment. Per , patient exhibited no sy mptoms. Patient is scheduled to have a right foot/2 toe amputation. Patient also stated he is currently on Bactrim for right foot osteomyelitis. The antibiotic treatment was started on Wednesday. In the ER, his lab was significant for a potassium of 5.9 Patient was treated with Kayexalate. ID has been consulted for IV antibiotics recommendation and management for osteomyelitis Allergies No Known Allergies Allergy (Verified 06/18/22 08:55) Home Medications: Levothyroxine Sodium [Levothyroxine] 150 mcg PO DAILY 07/31/20 Lisinopril [Zestril] 2 tab PO BID 07/31/20 Insulin Glargine,Hum.rec.anlog [Toupayam Solostar] 28 units SQ BEDTIME 03/04/22 Sitagliptin Phos/Metformin HCl [Janumet 50-1,000 mg Tablet] 1 tab PO BID 03/04/22 Pregabalin 100 mg PO BID 06/19/22 Amox/Clavulanate [Augmentin 875-125 Tab] 1 each PO BID #14 tab 06/20/22 Doxycycline Hyclate 100 mg PO BID #14 cap 06/20/22 - Past Medical/Surgical History Diabetic: Yes -: IDDM -: KIDNEY DISEASE -: HYPOTHYROIDISM -: Neuropathy -: HTN -: BROKEN LEFT ARM SURGERY-1995 -: Left great toe debridement 07/2020 Psychosocial/ Personal History: Patient is retired, on disability lives at home with his family. - Family History Brother Medical History: Diabetes Notes: 2 brothers Sister Medical History: Diabetes Notes: 3 sisters Father Medical History: Diabetes - Social History Alcohol use: No CD- Drugs: No Caffeine use: No Place of Residence: Home Review of Systems Eyes: Other (left blind) Integumentary: As per HPI Physical Examination Temp Pulse Resp BP Pulse Ox 98.3 F 74 17 123/57 L 94 06/22/22 08:00 06/22/22 08:00 06/22/22 08:00 06/22/22 08:00 06/22/22 08:00 General: Alert, In no apparent distress, Oriented x3 Respiratory: Clear to auscultation bilaterally Cardiovascular: No edema, Normal S1 S2 Gastrointestinal: Normal bowel sounds Musculoskeletal: Erythema (Right foot diabetic ulcer with osteomyelitis ) Integumentary: Skin breakdown, Skin lesion, Erythema, Warmth, Diabetic ulcer (Right foot diabetic ulcer with osteomyelitis ) Neurological: Normal speech, Normal tone, Normal affect Acetaminophen (Acetaminophen 500 Mg Tab) 500 mg PO Q4HP PRN PRN Reason: Pain scale 2-4 (Mild) Hydralazine HCl (Hydralazine Hcl 20 Mg/Ml Vial) 10 mg IV Q6HP PRN PRN Reason: Titrate to SBP (MUST DEFINE) Last Admin: 06/21/22 22:20 Dose: 10 mg Cefepime HCl 2 gm/ Sodium (Chloride) 100 mls @ 200 mls/hr IV Q12HR [facility]; Protocol Last Admin: 06/21/22 21:25 Dose: 100 mls Vancomycin HCl 1.5 gm/ Sodium (Chloride) 500 mls @ 250 mls/hr IVPB Q18H [facility]; Protocol Last Admin: 06/22/22 04:04 Dose: 500 mls Insulin Glargine (Insulin Glargine 100 Unit/Ml) 28 unit SQ BEDTIME [facility] Last Admin: 06/21/22 21:00 Dose: Not Given Insulin Human Regular (Insulin -Regular Human 50 Unit/0.5 Ml Ml) 0 unit SQ ACHS [facility]A; Protocol Last Admin: 06/22/22 07:30 Dose: Not Given Levothyroxine Sodium (Levothyroxine Sod 0.075 Mg Tab) 0.15 mg PO DAILYAC [facility] [place] Last Admin: 06/22/22 05:26 Dose: Not Given Ondansetron HCl (Ondansetron 4 Mg/2 Ml Vial) 4 mg IV Q6HP PRN PRN Reason: NAUSEA / VOMITING Pregabalin (Pregabalin 50 Mg Cap) 100 mg PO BID [facility] [place] Last Admin: 06/21/22 21:26 Dose: 100 mg Sodium Chloride (Flush Normal Saline 10 Ml) 10 ml IV BID [facility] Last Admin: 06/21/22 21:25 Dose: 10 ml - Problems (1) Diabetic foot ulcer with osteomyelitis Current Visit: Yes Status: Acute Plan: Antibiotics: IV Cefepime (06/19- ) Vancomycin, (06/20- ) Recommendations: Continue current IV Cefepime, (06/19- ) and Vancomycin (06/20- ) Plan for amputation today ID will recommend the duration of antibiotics base on the surgical result Conclusions/Impression: - Diabetic foot ulcer with osteomyelitis - DM II - KIDNEY DISEASE - HYPOTHYROIDISM - Neuropathy - HTN - BROKEN LEFT ARM SURGERY-1995 - Left great toe debridement 07/2020 ID will follow the patient closely for signs of infection with fever and WBC trends Case has been discussed with Dr. Livingston N Thank you Dr. Hu for consultation
[2022-06-22] MEDS: CEFEPIME 2 GM in NA CHLORIDE 0.9% 100 ML IV SCH ×2 (09:54→21:53)
[2022-06-22] MEDS: PREGABALIN 50 MG CAP PO SCH ×2 (09:54→21:54)
[2022-06-22] MEDS ORDERED: NA CHLORIDE 0.9% 1,000 ML ONE (10:36)
[2022-06-22] MEDS ORDERED: LIDOCAINE 1% MPF 5 ML VIAL ONE (10:51)
[2022-06-22] MEDS ORDERED: dexAMETHasone 10 MG/ML VIAL ONE (10:51)
[2022-06-22] MEDS ORDERED: FENTANYL CITR 100 MCG/2 ML ONE (10:51)
[2022-06-22] MEDS ORDERED: EPINEPHRINE/PF 1 MG/ML AMP ONE (10:51)
[2022-06-22] MEDS ORDERED: MIDAZOLAM HCL 2 MG/2 ML INJ ONE (10:51)
[2022-06-22] MEDS ORDERED: BUPIVACAINE 0.5% PF 10 ML VIAL ONE (10:55)
[2022-06-22] MEDS ORDERED: LIDOCAINE 2% MPF 5 ML VIAL ONE (11:30)
[2022-06-22] MEDS ORDERED: propofoL 200 MG/20 ML VIAL IV ONE (11:30)
--- NOTE | 2022-06-22 12:32 | P.OP ---
Preoperative diagnosis: Osteomyelitis of RIGHT 2nd and 3rd toes, metatarsals Postoperative diagnosis: Osteomyelitis of RIGHT 2nd and 3rd toes, metatarsals Primary procedure: Amputation of 2nd, 3rd Toes of RIGHT foot Secondary procedure: Partial metatarsalectomy of 2nd, 3rd metatarsals Other procedure(s): Debridement of necrotic tissues Anesthesia: MAC + Block Estimated blood loss: <5cc Specimen: toes, metatarsals, debridement tissues Findings: Osteomyelitis of RIGHT 2nd and 3rd toes, metatarsals Complications: None Transferred to: Recovery Room Condition: Good
[2022-06-22] MEDS ORDERED: HYDROCODONE/APAP 5/325 MG TAB PO PRN (12:42)
[2022-06-22 13:01] VITALS: O2SAT 98
--- NOTE | 2022-06-22 14:26 | OP ---
Date of Procedure: 06/22/2022 Surgeon: Kyle Redd MD, Preoperative Diagnosis: Osteomyelitis of the right second and third toes as well as metatarsals with associated second and third toes. Postoperative Diagnosis: Osteomyelitis of the right second and third toes as well as metatarsals wit h associated second and third toes. Procedure Performed: 1.Amputation of the second and third toes of the right foot. 2.Partial metatarsectomy of the second and third metatarsals. 3.Debridement of necrotic tissue. Anesthesia: MAC plus block/regional. Estimated Blood Loss: Less than 5 cc. Specimen: Toes, metatarsals, and debridement tissue. Findings: Osteomyelitis of the right second and third toes and metatarsals. Complications: None. Disposition: The patient was transferred to the recovery room in good condition. Procedure In Detail: After informed consent was obtained, the patient was brought to the operating r oom, prepped and draped in the usual sterile fashion after adequate anesthesia was achieved. I phil cated area overlying the partially 25% of the metatarsals on the second and third toes of the right f oot making a circular incision circumferentially around the area of the metatarsals extending on the plantar aspect over a previous wound on the plantar aspect of the foot between the second and third w eb space was appreciated and included this in the specimen. I demarcated the area with a marking pen . Then following that same marking, I used a 15 blade down to subcutaneous tissues. I used electroc autery to circumferentially dissect out the metatarsal heads. I did an amputation of the second and third metatarsals, sent them en bloc. At this point, I inspected the metatarsal heads and found to b e consistent with possible osteomyelitis of the area with significant abnormal tissue circumferential ly around the area consistent with chronic infection. As such, I removed the tissue sharply and debr ided the areas back of the metatarsal heads. I then used a bone cutter and removed the metatarsal he ads of the second and third metatarsals using a bone cutter. At this point, I used a rasp to bevel t he edges of the bone. Hemostasis was achieved with electrocautery. I then irrigated the area copiou sly and reapproximated the soft tissue over the dorsal fascia using interrupted 3-0 Vicryl sutures to cover the beveled metatarsal bones. At this point, the area was copiously irrigated once again and a sterile dressing was then packed in the wound. The patient tolerated the procedure well without ev idence of complication and transferred to PACU in good condition. All counts were correct at the end of the case. PATRICIA/KELSEY Voice ID: [id number] Report ID: [id number]
--- NOTE | 2022-06-22 16:07 | P.PN ---
Subjective Date of Service: 06/22/22 Primary Care Provider: Grciel Chief Complaint: Hyperkalemia/Osteomyelitis of right foot No new complain. Status post right second and third toes amputation. Physical Examination - Vital Signs Temperature: 98.3 F Blood Pressure: 131/54 Pulse: 73 Respirations: 20 Pulse Ox (%): 94 Assessment And Plan - Current Problems (Diagnosis) (1) Diabetic foot ulcer Current Visit: Yes Status: Acute (2) Osteomyelitis of foot Current Visit: Yes Status: Acute (3) Hyperkalemia Current Visit: Yes Status: Acute (4) Diabetes mellitus type 2 in nonobese Current Visit: No Status: Acute - Plan Physical Exam General: Alert, In no apparent distress, Oriented x3 Neck: Supple, no elevated JVD. Respiratory: Clear to auscultation bilaterally, Normal air movement Cardiovascular: No edema, Regular rate/rhythm Gastrointestinal: Normal bowel sounds, no tenderness Neurological: No focal motor deficit. Musculoskeletal: Right foot dressed. Plan: Hyperkalemia secondary to Bactrim induced type IV RTA- resolved. Status post Kayexalate and Lokelma. Bactrim discontinued. Lisinopril is on hold. Nephrology is following. He has been normokalemic. MRI of the right foot demonstrating osteomyelitis of the right second and third digits. Status post amputation of 2nd, 3rd Toes of right foot, partial metatarsalectomy of 2nd, 3rd metatarsals and debridement of necrotic tissues Continue IV antibiotics for now. Discussed with surgery-Dr. Redd regarding how long to continue antibiotics. Glucose management with long-acting insulin and insulin sliding scale. Possible discharge in a.m.
[2022-06-22] MEDS: INSULIN GLARGINE 100 UNIT/ML SQ SCH (21:55)
--- NOTE | 2022-06-23 01:20 | PN ---
Date of Progress Note: 06/22/2022 Review of Systems: Patient denies fever or chills. Physical Examination: Lungs: Clear to auscultation bilaterally. Heart: S1, S2. Abdomen: Soft. Extremities: Dressing in place, slight edema in both ankles. Impression And Plan: 1.Osteomyelitis of the right foot. Patient underwent toe amputation. 2.He presented with hyperkalemia. Avoid nephrotoxic medication. Hyperkalemia was due to Bactrim an d lisinopril, and resolved. Patient cannot take Bactrim and lisinopril. Avoid Bactrim, JOANNE inhibito r, angiotensin receptor benedicto, and nonsteroidal anti-inflammatory medication. Patient received Bong sheree to treat hyperkalemia. Patient will continue low-potassium diet. 3.Diabetes mellitus with renal manifestation. Monitor potassium and electrolytes and adjust medicat ion as needed according to lab results. ALBINA/MODL Voice ID: [id number] Report ID: [id number]
[2022-06-23 04:19] LABS: Potassium 3.8 mmol/L (3.5-5.1)
[2022-06-23] MEDS: LEVOTHYROXINE SOD 0.075 MG TAB PO SCH (06:35)
[2022-06-23 06:37] VITALS: BP 143/68; TEMP 97.7
[2022-06-23] MEDS: INSULIN -REGULAR HUMAN 50 UNIT/0.5 ML ML SQ SCH (07:30)
--- NOTE | 2022-06-23 08:03 | P.PN ---
Subjective Date of Service: 06/23/22 Primary Care Provider: Gricel Chief Complaint: Hyperkalemia/Osteomyelitis of right foot Patient sitting at the edge of the bed having breakfast. Pleasant and stated that he had some bleeding from the surgical site when used bathroom. Dressing had been changed and wound cleaned. No other event upon examination. Physical Examination - Vital Signs Temperature: 97.7 F Blood Pressure: 143/68 Pulse: 85 Respirations: 18 Pulse Ox (%): 94 - Physical Exam General: In no apparent distress, Oriented x3 Respiratory: Clear to auscultation bilaterally Cardiovascular: No edema, Normal S1 S2 Gastrointestinal: Normal bowel sounds Musculoskeletal: Other (Amputation of the second and third toes of the right foot) Integumentary: Diabetic ulcer (Amputation of the second and third toes of the right foot) Neurological: Normal speech, Normal tone, Normal affect - Studies Active Medications Acetaminophen (Acetaminophen 500 Mg Tab) 500 mg PO Q4HP PRN PRN Reason: Pain scale 2-4 (Mild) Hydrocodone Bitart/Acetaminophen (Hydrocodone/Apap 5/325 Mg Tab) 1 tab PO Q4H PRN PRN Reason: Pain scale 5-7 (Moderate) Hydralazine HCl (Hydralazine Hcl 20 Mg/Ml Vial) 10 mg IV Q6HP PRN PRN Reason: Titrate to SBP (MUST DEFINE) Last Admin: 06/21/22 22:20 Dose: 10 mg Cefepime HCl 2 gm/ Sodium (Chloride) 100 mls @ 200 mls/hr IV Q12HR [facility]A; Protocol Last Admin: 06/22/22 21:53 Dose: 100 mls Vancomycin HCl 1.5 gm/ Sodium (Chloride) 500 mls @ 250 mls/hr IVPB Q18H [facility]; Protocol Last Admin: 06/22/22 23:00 Dose: 500 mls Insulin Glargine (Insulin Glargine 100 Unit/Ml) 28 unit SQ BEDTIME [facility] Last Admin: 06/22/22 21:55 Dose: 28 unit Insulin Human Regular (Insulin -Regular Human 50 Unit/0.5 Ml Ml) 0 unit SQ ACHS [facility]A; Protocol Last Admin: 06/22/22 21:54 Dose: 6 unit Levothyroxine Sodium (Levothyroxine Sod 0.075 Mg Tab) 0.15 mg PO DAILYAC [facility] Last Admin: 01/31/23 06:35 Dose: 0.15 mg Ondansetron HCl (Ondansetron 4 Mg/2 Ml Vial) 4 mg IV Q6HP PRN PRN Reason: NAUSEA / VOMITING Potassium Chloride (Potassium Cl Sa 10 Meq Tab) 20 meq PO 1X ONE Stop: 06/23/22 09:01 Pregabalin (Pregabalin 50 Mg Cap) 100 mg PO BID [facility] Last Admin: 06/22/22 21:54 Dose: 100 mg Sodium Chloride (Flush Normal Saline 10 Ml) 10 ml IV BID [facility] Last Admin: 06/22/22 21:54 Dose: 10 ml Assessment And Plan - Current Problems (Diagnosis) (1) Diabetic foot ulcer with osteomyelitis Current Visit: Yes Status: Acute Plan: Antibiotics: IV Cefepime (06/19- ) Vancomycin, (06/20- ) Recommendations: Continue current IV Cefepime, (06/19- ) and Vancomycin (06/20- ) When discharge, can switch to PO Augmentin 500 mg, Q8H for total of [address] Redd performed amputation and debridement on 06/22: 1. Amputation of the second and third toes of the right foot. 2. Partial metatarsectomy of the second and third metatarsals. 3. Debridement of necrotic tissue. - Plan - Diabetic foot ulcer with osteomyelitis - DM II - KIDNEY DISEASE - HYPOTHYROIDISM - Neuropathy - HTN - BROKEN LEFT ARM SURGERY-1995 - Left great toe debridement 07/2020 ID will follow the patient closely for signs of infection with fever and WBC trends Case has been discussed with Dr. Livingston, N
[2022-06-23] MEDS ORDERED: POTASSIUM CL SA 10 MEQ TAB PO ONE (09:00)
[2022-06-23] MEDS: PREGABALIN 50 MG CAP PO SCH (09:12)
[2022-06-23] MEDS: CEFEPIME 2 GM in NA CHLORIDE 0.9% 100 ML IV SCH (09:12)
--- NOTE | 2022-06-23 17:10 | EKG ---
Test Date: 2022-06-19 Test Time: 11:01:28 Caser Up: MARE MEASUREMENT RESULTS: Intervals: Rate: 70 NV: 126 QRSD: 74 QT: 390 QTc: 421 [place]: P: 43 NV: 126 QRS: 56 T: 52 INTERPRETIVE STATEMENTS: Normal sinus rhythm Normal ECG Compared to ECG 03/03/2022 20:20:29 No significant changes Electronically Signed On 06-23-22 17:00:47 [employer] by Jarvis Carlin
--- NOTE | 2022-06-24 00:17 | PN ---
Date of Progress Note: 06/23/2022 Chief Complaint: Chronic kidney disease. Review of Systems: Denies fever or chills. Physical Examination: Lungs: Clear to auscultation bilaterally. Heart: S1, S2. Abdomen: Soft. Extremities: Dressing in place. Impression And Plan: 1.Osteomyelitis of the right foot. The patient underwent toe amputation. He presented with hyperka lemia. Avoid nephrotoxic medication. Hyperkalemia was due to Bactrim and lisinopril and it resolved . The patient cannot take Bactrim and lisinopril. Avoid JOANNE inhibitor and nonsteroidal antiinflamma tory medication. The patient received Lokelma to treat hyperkalemia. Potassium level has improved. Continue low-potassium diet. 2.Diabetes mellitus with renal manifestation and chronic kidney disease. Monitor potassium level an d electrolytes. Avoid nonsteroidal antiinflammatory medication. The patient is not a candidate for metformin. EB/MODL Voice ID: [id number] Report ID: [id number]
--- NOTE | 2022-06-24 21:46 | P.DS ---
Admission Date: 06/21/22 Discharge Date: 06/23/22 Primary Care Provider: Gricel Disposition: ROUTINE DISCHARGE Discharge Condition: FAIR Reason for Admission: Hyperkalemia/Osteomyelitis of right foot Consultations: General Surgery - Dr. Redd ID - Dr. Livingston nephrology - Elaine/Brigitte Brief History of Present Illness: 66-year-old male with history of diabetes mellitus type 2insulin-dependent, hypertension, and hypothyroidism presents the emergency department for abnormal labs. Patient reports getting pre-op labs yesterday, and was alerted that his potassium was 5.8. Per patient, they instructed him to drink some fluids and redraw the labs the next day. Labs were redrawn today, and it resulted in a potassium of 6.1. Patient was instructed to go to the ER for further evaluation and treatment. Per , patient exhibited no symptoms. Patient is scheduled to have a right foot/2 toe amputation. Patient also stated he is currently on Bactrim for right foot osteomyelitis. The antibiotic treatment was started on Wednesday. In the ER, his lab was significant for a potassium of 5.9. Patient was treated with Kayexalate. Hospital Course: Problem List Diabetic foot ulcer, right Osteomyelitis of foot, right Hyperkalemia Diabetes mellitus type 2, insulin dependent Patient presented with infection / osteomyelitis of right second and third digits. He was treated with IV antibiotics and underwent debridement/amputation by Dr. Redd. Patient deemed stable for discharge home with 7 days of antibiotics. Continue home health / wound care. Wound vac to be placed at home. Call Dr. Redd's office to schedule follow up, and if pain medication is needed. reviewed recommendation to be non-weightbearing on affected foot. Patient was noted to have hyperkalemia secondary to bactrim use in combination with lisinopril. Avoid bactrim use, especially in combination with your blood pressure medicat ions. Vital Signs/Physical Exam: Temp Pulse Resp BP Pulse Ox 97.7 F 85 18 143/68 H 94 06/23/22 09:15 06/23/22 09:15 06/23/22 09:15 06/23/22 09:15 06/23/22 09:15 General: Alert, In no apparent distress, Oriented x3 HEENT: EOMI, Sclerae nonicteric Neck: Supple, No LAD Respiratory: Clear to auscultation bilaterally, Normal air movement Cardiovascular: No edema, Regular rate/rhythm Gastrointestinal: Soft and benign, No tenderness Integumentary: Other (s/p amputation. minimal blood (old,dried) on part of dressing) Neurological: Normal speech, Normal affect Laboratory Data at Discharge: WBC 5.80 K/uL (4.3-10.9) 06/22/22 03:14 Hgb 8.9 g/dL (13.6-17.9) L 06/22/22 03:14 Hct 27.3 % (39.6-49.0) L 06/22/22 03:14 Plt Count 206 K/uL (152-406) 06/22/22 03:14 Sodium 137 mmol/L (136-145) 06/23/22 02:53 Potassium 3.8 mmol/L (3.5-5.1) 06/23/22 02:53 BUN 23 mg/dL (7-18) H 06/23/22 02:53 Creatinine 1.07 mg/dL (0.70-1.30) 06/23/22 02:53 Glucose 263 mg/dL (74-106) H 06/23/22 02:53 Phosphorus 3.0 mg/dL (2.5-4.9) 06/23/22 02:53 Magnesium 2.0 mg/dL (1.6-2.4) 06/23/22 02:53 Total Bilirubin 0.2 mg/dL (0.2-1.0) 06/19/22 11:06 AST 15 U/L (15-37) 06/19/22 11:06 ALT 18 U/L (16-61) 06/19/22 11:06 Alkaline Phosphatase 179 U/L (45-117) H 06/19/22 11:06 Home Medications: Levothyroxine Sodium [Levothyroxine] 150 mcg PO DAILY 07/31/20 Lisinopril [Zestril] 2 tab PO BID 07/31/20 Insulin Glargine,Hum.rec.anlog [Tammy Mcrae] 28 units SQ BEDTIME 03/04/22 Sitagliptin Phos/Metformin HCl [Janumet 50-1,000 mg Tablet] 1 tab PO BID 03/04/22 Pregabalin 100 mg PO BID 06/19/22 Amox/Clavulanate [Augmentin 875-125 Tab] 1 each PO BID #14 tab 06/20/22 Doxycycline Hyclate 100 mg PO BID #14 cap 06/20/22 New Medications: Amox/Clavulanate [Augmentin 875-125 Tab] 1 each PO BID #14 tab Doxycycline Hyclate 100 mg PO BID #14 cap Physician Discharge Instructions: Patient presented with infection / osteomyelitis of right second and third digits. He was treated with IV antibiotics and underwent debridement/amputation by Dr. Redd. Patient deemed stable for discharge home with 7 days of antibiotics. Continue home health / wound care. Wound vac to be placed at home. Call Dr. Redd's office to schedule follow up, and if pain medication is needed. Patient was noted to have hyperkalemia secondary to bactrim use in combination with lisinopril. Avoid bactrim use, especially in combination with your blood pressure medications. Diet: ADA Activity: Ad bao Followup: Radha Monsalve DO, DO [Primary Care Provider] - Kyle Redd MD [ACTIVE - CAN ADMIT] - 1 Week Time spent managing pt's care (in minutes): 45
== END 2022-06-23 11:35 | disposition home or self-care (01) | DRG 617 ==
LOC: ER 10:07 → ERHOLD 13:20 → 4TH 16:35 → OBSVTOIN 06-21 16:23
PROVIDERS: ADMIT Internal Medicine; ATTEND Hospitalist
PROC: 0JBQ0ZZ Excision of Right Foot Subcutaneous Tissue and Fascia, Open Approach (ICD-10-PCS; 2022-06-22)
PROC: 0Y6T0Z0 Detachment at Right 3rd Toe, Complete, Open Approach (ICD-10-PCS; 2022-06-22)
PROC: 0QBN0ZZ Excision of Right Metatarsal, Open Approach (ICD-10-PCS; 2022-06-22)
PROC: 0Y6R0Z0 Detachment at Right 2nd Toe, Complete, Open Approach (ICD-10-PCS; principal; 2022-06-22 10:15)
DX: E11.69 Type 2 diabetes mellitus with other specified complication (principal); E11.52 Type 2 diabetes mellitus with diabetic peripheral angiopathy with gangrene; M86.171 Other acute osteomyelitis, right ankle and foot; E87.5 Hyperkalemia; I12.9 Hypertensive chronic kidney disease with stage 1 through stage 4 chronic kidney disease, or unspecified chronic kidney disease; N18.9 Chronic kidney disease, unspecified; E11.22 Type 2 diabetes mellitus with diabetic chronic kidney disease; E11.40 Type 2 diabetes mellitus with diabetic neuropathy, unspecified; E11.621 Type 2 diabetes mellitus with foot ulcer; L97.519 Non-pressure chronic ulcer of other part of right foot with unspecified severity; E03.9 Hypothyroidism, unspecified; T36.8X5A Adverse effect of other systemic antibiotics, initial encounter; Z79.4 Long term (current) use of insulin; Z79.890 Hormone replacement therapy; Z79.899 Other long term (current) drug therapy; Z20.822 Contact with and (suspected) exposure to COVID-19
CPT/HCPCS: 36415; 71046; 80048; 80053; 80202; 81001; 82570; 82947; 83036; 83735; 83935; 84100; 84132; 84156; 84300; 85025; 87811; 88304; 88305; 88311; 93005; 96360; 96361; 99285; G0378; J0171; J0360; J0692; J1100; J1815; J2001; J2250; J2704; J3010; J3370; J7030; J7040